=== PATIENT | male | born 1960 | race Caucasian/White ===

== ENCOUNTER 2017-11-02 10:41 | Inpatient (IN) | payer OTHER ==
[~2017-11-02] VITALS: Ht 190.5 cm; Wt 163.3 kg
[2017-11-02] MEDS ORDERED: PANTOPRAZOLE 40 MG 10ML VIAL IV STA (10:44)
[2017-11-02] MEDS ORDERED: SODIUM CHLORIDE 0.9% 1000ML 1,000 ML IV STA (10:44)
[2017-11-02] MEDS ORDERED: IPRATROPIUM BROMIDE 0.02% 2.5 ML NEB NEB ONE (10:45)
[2017-11-02] MEDS ORDERED: FUROSEMIDE INJ 10 MG/ML 2 ML VIAL IV ONE (10:45)
[2017-11-02] MEDS ORDERED: LEVALBUTEROL HCL SOLN NEBU 1.25 MG/3 ML NEB INH ONE (10:45)
[2017-11-02] MEDS ORDERED: PANTOPRAZOLE 40 MG 10ML VIAL IV SCH (11:00)
[2017-11-02 11:04] LABS: BASOPHILS % 0.4 % (0.0-1.0); EOSINOPHILS # (AUTO) 0.1 (0.0-0.4); EOSINOPHILS % 1.1 % (0.0-6.0); HEMATOCRIT 42.7 % (38.2-49.6); HEMOGLOBIN 13.4 g/dL (14.0-18.0); LYMPHOCYTES # (AUTO) 2.6 (1.0-3.2); LYMPHOCYTES % 34.5 % (18.0-39.1); MEAN CORPUSCULAR HEMOGLOBIN 26.6 pg (28-32); MEAN CORPUSCULAR HGB CONC 31.4 g/dL (31-35); MEAN CORPUSCULAR VOLUME 84.9 fL (81-99); MONOCYTES # (AUTO) 0.5 (0.2-0.8); MONOCYTES % 7.1 % (4.4-11.3); NEUTROPHILS # (AUTO) 4.2 (2.1-6.9); NEUTROPHILS % 56.4 % (38.7-80.0); PLATELET COUNT 266 x10e3/uL (140-360); RED BLOOD COUNT 5.03 x10e6/uL (4.3-5.7); RED CELL DISTRIBUTION WIDTH 14.5 % (11.7-14.4)
[2017-11-02 11:14] LABS: INR 1.22; PROTHROMBIN TIME 14.5 seconds (11.9-14.5)
[2017-11-02 11:15] LABS: PARTIAL THROMBOPLASTIN TIME 25.6 seconds (23.8-35.5)
--- NOTE | 2017-11-02 11:17 | Diagnostic Imaging Report ---
EXAMINATION: CHEST SINGLE (PORTABLE) INDICATION: Trouble breathing COMPARISON: None FINDINGS: AP view TUBES and LINES: None. LUNGS: Lungs are well inflated. There are bibasilar atelectasis. There is mild prominence of the central pulmonary vasculature, consistent with pulmonary venous congestion. PLEURA: No pleural effusion or pneumothorax. HEART AND MEDIASTINUM: Cardiac size is mildly enlarged. BONES AND SOFT TISSUES: No acute osseous lesion. Soft tissues are unremarkable. UPPER ABDOMEN: No free air under the diaphragm. IMPRESSION: Central pulmonary venous congestion. Signed by: Dr. Asa Muñoz M.D. on 11/02/2017 11:14 AM
[2017-11-02 11:19] LABS: KETONES,URINE NEGATIVE (NEGATIVE); LEUKOCYTE ESTERASE ,URINE NEGATIVE (NEGATIVE); NITRITE,URINE NEGATIVE (NEGATIVE); URINE UROBILINOGEN 0.2 mg/dL (0.2 - 1)
[2017-11-02 11:20] LABS: BILIRUBIN,URINE 1+ (NEGATIVE); COLOR,URINE YELLOW (YELLOW); PROTEIN,URINE DIPSTICK 2+ (NEGATIVE)
[2017-11-02 11:21] LABS: CLARITY,URINE HAZY (CLEAR)
[2017-11-02 11:24] LABS: ALBUMIN 3.2 g/dL (3.5-5.0); ALBUMIN/GLOBULIN RATIO 0.8 (0.8-2.0); ANION GAP 15.5 mmol/L (8-16); CALCIUM 9.4 mg/dL (8.4-10.2); CREATININE, SERUM 2.07 mg/dL (0.72-1.25); MAGNESIUM 1.4 MG/DL (1.3-2.1); POTASSIUM 4.5 mmol/L (3.5-5.1)
[2017-11-02 11:25] LABS: BACTERIA,URINE FEW /HPF; EPITHELIAL CELLS,URINE FEW /LPF; RBC,URINE 0-5 /HPF (0-5); WBC,URINE (MAN) 0-5 /HPF (0-5)
[2017-11-02] MEDS ORDERED: basaglar SC (11:35)
[2017-11-02] MEDS ORDERED: PIOGLITAZONE HC45 MG PO (11:35)
[2017-11-02] MEDS ORDERED: ASPIR 8181 MG PO (11:35)
[2017-11-02] MEDS ORDERED: GABAPENTIN300 MG PO (11:35)
[2017-11-02] MEDS ORDERED: METFORMIN HCL500 MG PO (11:35)
[2017-11-02] MEDS ORDERED: SIMVASTATIN40 MG PO (11:35)
[2017-11-02] MEDS ORDERED: OMEPRAZOLE40 MG PO (11:35)
[2017-11-02] MEDS ORDERED: LISINOPRIL10 MG PO (11:35)
[2017-11-02] MEDS ORDERED: HYDROCHLOROTHIA25 MG PO (11:35)
[2017-11-02] MEDS ORDERED: DIATRIZOATE MEGL/DIATRIZOA SOD 30 ML BTL PO ONE (11:37)
[2017-11-02 11:43] LABS: CREATINE KINASE MB 6.9 ng/mL (0-5.0); THYROID STIMULATING HORMONE 2.37 uIU/mL (0.350-4.940)
[2017-11-02] MEDS ORDERED: METOPROLOL TARTRATE 50 MG TAB PO ONE (11:45)
[2017-11-02] MEDS ORDERED: METOPROLOL TARTRATE INJ 1 MG/ML VIAL IV SCH ×5 (11:45→15:45)
[2017-11-02] MEDS ORDERED: DIGOXIN INJ 0.25 MG/ML 2 ML AMP IV SCH (12:00)
[2017-11-02] MEDS ORDERED: FUROSEMIDE INJ 10 MG/ML 2 ML VIAL IV SCH (13:00)
[2017-11-02] MEDS ORDERED: METOPROLOL TARTRATE INJ 1 MG/ML VIAL IV ONE ×2 (13:00→14:15)
[2017-11-02] MEDS ORDERED: DEXTROSE 50% SYRINGE 50 ML IV PRN ×2 (13:30→17:30)
[2017-11-02] MEDS ORDERED: ASPIRIN 81 MG CHEW TAB PO SCH (13:30)
[2017-11-02] MEDS ORDERED: ENOXAPARIN SODIUM INJ 100 MG/ML SYR SC SCH (13:45)
[2017-11-02] MEDS ORDERED: LEVALBUTEROL HCL SOLN NEBU 1.25 MG/3 ML NEB INH PRN (14:00)
[2017-11-02] MEDS ORDERED: IPRATROPIUM BROMIDE 0.02% 2.5 ML NEB NEB PRN (14:00)
--- NOTE | 2017-11-02 14:14 | Diagnostic Imaging Report ---
EXAM: CT Chest, Abdomen and Pelvis WITHOUT contrast INDICATION: Trouble breathing. Abdominal pain. \S\PE PROTOCOL\S\Y COMPARISON: None. TECHNIQUE: Chest, abdomen and pelvis were scanned utilizing a multidetector helical scanner from the lung apex to the pubic symphysis without administration of IV contrast. Absence of intravenous contrast decreases sensitivity for detection of focal lesions and vascular pathology. Coronal and sagittal reformations were obtained. Routine protocol was performed. IV CONTRAST: None ORAL CONTRAST: Gastrografin COMPLICATIONS: None RADIATION DOSE: Total DLP: 1274.06 mGy*cm Estimated effective dose: (DLP x 0.015 x size factor) mSv CTDIvol has been reviewed. It is below the limits set by the Radiation Protocol Committee (RPC). FINDINGS: LINES and TUBES: None. LUNGS AND AIRWAYS: Mild interlobular septal thickening especially in the lung bases. Mild groundglass opacities in both lower lobes especially the left lower lobe. Mild bronchial wall thickening. Calcified granuloma in the left lower lobe. A few scattered calcified granulomas in the right lung base. Right lower lobe: 8 mm nodule (series 4 image 85) PLEURA: Small right pleural effusion. HEART AND MEDIASTINUM: The thyroid gland is normal. No mediastinal, hilar or axillary lymphadenopathy. The heart is normal in size. There is no pericardial effusion. There are mild atherosclerotic calcifications in the aorta and coronary arteries. HEPATOBILIARY: Liver is enlarged measuring 24 cm in craniocaudal dimension. However, the left hepatic lobe is small, consistent with Agnieszka's lobe. Diffuse hepatic steatosis. No focal hepatic lesions. No biliary ductal dilation. GALLBLADDER: No radio-opaque stones or sludge. No wall thickening. Subtle fat stranding around the gallbladder. SPLEEN: Mild splenomegaly measuring 13.5 cm in AP dimension. PANCREAS: No focal masses or ductal dilatation. ADRENALS: No adrenal nodules KIDNEYS/URETERS: Right kidney is absent. Perinephric fat stranding around the left kidney. No hydronephrosis. No cystic or solid mass lesions. No stones. GI TRACT: No abnormal distention, wall thickening, or evidence of bowel obstruction. Appendix is normal. PELVIC ORGANS/BLADDER: Bladder unremarkable. Prostate is unremarkable. Left seminal vesicle is mildly prominent. Right seminal vesicle is not visualized. LYMPH NODES: No lymphadenopathy. VESSELS: There is mild atherosclerotic disease in the aorta and major arterial branches. PERITONEUM / RETROPERITONEUM: No free air or fluid. BONES: There are degenerative changes in the lumbar spine. Mild degenerative changes at L4-5 with posterior disc osteophyte SOFT TISSUES: Unremarkable. IMPRESSION: 1. Mild patchy ground glass opacities and interlobular septal thickening consistent with mild edema. 2. Focal pneumonia in the left lower lobe. 3. 8 mm nonspecific right lower lobe nodule. Recommend follow-up chest CT in 3 months. 4. Subtle nonspecific fat stranding around the gallbladder without radiopaque stones identified. 5. Diffuse hepatic steatosis with mild hepatomegaly/Agnieszka's lobe. Signed by: Dr. Asa Muñoz M.D. on 11/02/2017 2:11 PM
[2017-11-02] MEDS ORDERED: AMIODARONE HCL 150 MG/100 ML BAG IV ONE (15:30)
[2017-11-02] MEDS ORDERED: MAGNESIUM SULFATE 2GM/50ML 50 ML IV SCH (15:30)
[2017-11-02] MEDS: AMIODARONE HCL 200 MG TAB PO SCH (16:24)
[2017-11-02] MEDS: METOPROLOL TARTRATE 25 MG TAB PO SCH (16:25)
[2017-11-02] MEDS: INSULIN REGULAR, HUMAN 100 UNIT/1 ML 3ML VIAL SQ SCH ×2 (16:25→22:15)
--- OUTSIDE RECORDS SUMMARY | 2017-11-02 16:38 | XMS REPORT ---
Author Author [facility] Address Unknown Phone Unavailable Care Team Providers Care [employer] Name Role Phone RACIEL CRANE Unavailable Unavailable Problems This patient has no known problems. Allergies, Adverse Reactions, Alerts This patient has no known allergies or adverse reactions. Medications This patient has no known medications. Results Test Description Test Time Test Comments Text Results Atomic Results Result Comments CHEST SINGLE (PORTABLE) [place] [address] Patient Name: PILLO BERGERON MR #: [id number] : 1960 Age/Sex: 57/M Req #: [id number] Adm Physician: Ordered by: RACIEL CRANE MD, MD Report #: [id number] Location: ER Room/Bed: Procedure: [id number] DX/CHEST SINGLE (PORTABLE) Exam Date: 11/02/17 Exam Time: 1100 REPORT STATUS: Signed EXAMINATION : CHEST SINGLE (PORTABLE) INDICATION: Trouble breathing COMPARISON: None FINDINGS: AP view TUBES and LINES: None. LUNGS: Lungs are well inflated. There are bibasilar atelectasis. There is mild prominence of the central pulmonary vasculature, consistent with pulmonary venous congestion. PLEURA: No pleural effusion or pneumothorax. HEART AND MEDIASTINUM: Cardiac size is mildly enlarged. BONES AND SOFT TISSUES: No acute osseous lesion. Soft tissues are unremarkable. UPPER ABDOMEN: No free air under the diaphragm. IMPRESSION: Central pulmonary venous congestion. Signed by: Dr. Reggie Muñoz M.D. on 11/02/2017 11:14 AM Dictated By: REGGIE MUÑOZ MD 111 Transcribed By: JAMI on 11/02/17 1114 COPY TO: RACIEL CRANE CT CHEST WO [place] [address] Patient Name: PILLO BERGERON MR #: [id number] : 1960 Age/Sex: 57/M Req # : [id number] Adm Physician: Ordered by: RACIEL CRANE MD, MD Report #: [id number] Location: ER Room/Bed: Procedure: [id number] CT/CT CHEST WO Exam Date: 11/02/17 Exam Time: 1310 REPORT STATUS: Signed EXAM: CT Chest, Abdomen and Pelvis WITHOUT contrast INDICATION: Trouble breathing. Abdominal pain. S PE PROTOCOL S Y COMPARISON: None. TECHNIQUE: Chest, abdomen and pelvis were scanned utilizing a multidetector helical scanner from the lung apex to the pubic symphysis without administration of IV contrast. Absence of intravenous contrast decreases sensitivity for detection of focal lesions and vascular pathology. Coronal and sagittal reformations were obtained. Routine protocol was performed. IV CONTRAST: None ORAL CONTRAST: Gastrografin COMPLICATIONS: None RADIATION DOSE: Total DLP: 1274.06 mGy*cm Estimated effective dose: (DLP x 0.015 x size factor) mSv CTDIvol has been reviewed. It is below the limits set by the Radiation Protocol Committee (RPC). FINDINGS: LINES and TUBES: None. LUNGS AND AIRWAYS: Mild interlobular septal thickening especially in the lung bases. Mild groundglass opacities in both lower lobes especially the left lower lobe. Mild bronchial wall thickening. Calcified granuloma in the left lower lobe. A few scattered calcified granulomas in the right lung base. Right lower lobe: 8 mm nodule (series 4 image 85) PLEURA: Small right pleural effusion. HEART AND MEDIASTINUM: The thyroid gland is normal. No mediastinal, hilar or axillary lymphadenopathy. The heart is normal in size. There is no pericardial effusion. There are mild atherosclerotic calcifications in the aorta and coronary arteries. HEPATOBILIARY: Liver is enlarged measuring 24 cm in craniocaudal dimension. However, the left hepatic lobe is small, consistent with Agnieszka's lobe. Diffuse hepatic steatosis. No focal hepatic lesions. No biliary ductal dilation. GALLBLADDER: No radio-opaque stones or sludge. No wall thickening. Subtle fat stranding around the gallbladder. SPLEEN: Mild splenomegaly measuring 13.5 cm in AP dimension. PANCREAS: No focal masses or ductal dilatation. ADRENALS: No adrenal nodules KIDNEYS/URETERS: Right kidney is absent. Perinephric fat stranding around the left kidney. No hydronephrosis. No cystic or solid mass lesions. No stones. GI TRACT: No abnormal distention, wall thickening, or evidence of bowel obstruction. Appendix is normal. PELVIC ORGANS/BLADDER: Bladder unremarkable. Prostate is unremarkable. Left seminal vesicle is mildly prominent. Right seminal vesicle is not visualized. LYMPH NODES: No lymphadenopathy. VESSELS: There is mild atherosclerotic disease in the aorta and major arterial branches. PERITONEUM / RETROPERITONEUM: No free air or fluid. BONES: There are degenerative changes in the lumbar spine. Mild degenerative changes at L4-5 with posterior disc osteophyte SOFT TISSUES: Unremarkable. IMPRESSION: 1. Mild patchy ground glass opacities and interlobular septal thickening consistent with mild edema. 2. Focal pneumonia in the left lower lobe. 3. 8 mm nonspecific right lower lobe nodule. Recommend follow-up chest CT in 3 months. 4. Subtle nonspecific fat stranding around the gallbladder without radiopaque stones identified. 5. Diffuse hepatic steatosis with mild hepatomegaly/Agnieszka's lobe. Signed by: Dr. Reggie Muñoz M.D. on 11/02/2017 2:11 PM Dictated By: REGGIE MUÑOZ MD 1411 Transcribed By: JAMI on 11/02/17 1411 COPY TO: RACIEL CRANE
[2017-11-02] MEDS ORDERED: AMIODARONE HCL 900 MG in DEXTROSE 5% 500ML 500 ML IV SCH (17:00)
[2017-11-02] MEDS ORDERED: ENOXAPARIN SOD INJ 40 MG/0.4 ML SYR SC SCH (17:00)
[2017-11-02] MEDS ORDERED: FUROSEMIDE INJ 10 MG/ML 4 ML VIAL IV SCH (17:00)
[2017-11-02] MEDS ORDERED: ZOLPIDEM TARTRATE 5 MG TAB PO PRN (17:30)
[2017-11-02] MEDS ORDERED: MAGNESIUM SULFATE 2GM/50ML 50 ML IV ONE (17:30)
[2017-11-02] MEDS ORDERED: HYDRALAZINE HCL 20 MG/ML VIAL IV PRN (17:30)
[2017-11-02] MEDS ORDERED: HYDROCODONE/APAP 5MG-325MG TAB PO PRN (17:45)
[2017-11-02] MEDS ORDERED: MORPHINE SULFATE 2 MG/ML SYR IV PRN (17:45)
[2017-11-02] MEDS: DIGOXIN INJ 0.25 MG/ML 2 ML AMP IV SCH (17:45)
[2017-11-02] MEDS ORDERED: ONDANSETRON HCL INJ 2 MG/ML VIAL IV PRN (17:45)
[2017-11-02] MEDS ORDERED: ACETAMINOPHEN 325 MG TAB PO PRN (17:45)
[2017-11-02] MEDS ORDERED: AMIODARONE HCL 150 MG/100 ML BAG IV SCH (18:00)
[2017-11-02] MEDS: CEFTRIAXONE SOD 1 GM VIAL IV SCH (18:06)
[2017-11-02] MEDS: FUROSEMIDE INJ 100 MG in SODIUM CHLORIDE 0.9% 100 ML 90 ML IV SCH (20:10)
[2017-11-02] MEDS: ENOXAPARIN SODIUM INJ 100 MG/ML SYR SC SCH (23:12)
[2017-11-03] MEDS: DIGOXIN INJ 0.25 MG/ML 2 ML AMP IV SCH
--- NOTE | 2017-11-03 01:20 | Diagnostic Imaging Report ---
EXAM: US RENAL RETROPERITONEAL COMP INDICATION: \S\kaylee \[id number] \S\[id number] COMPARISON: None TECHNIQUE: Transverse and longitudinal images of the kidneys and bladder were obtained. FINDINGS: Examination is degraded by body habitus. Right Kidney: Not visualized Left Kidney: Length: 13.3 cm Appearance: Normal echogenicity. Collecting system: No hydronephrosis Stones: None Cyst/Mass: None Bladder: Mostly decompressed. Other: Hepatic steatosis. IMPRESSION: Solitary left kidney without hydronephrosis. Signed by: Dr Naina Cheatham MD on 11/03/2017 1:17 AM
[2017-11-03 01:21] LABS: BASOPHILS % 0.3 % (0.0-1.0); EOSINOPHILS # (AUTO) 0.1 (0.0-0.4); EOSINOPHILS % 0.8 % (0.0-6.0); HEMOGLOBIN 12.8 g/dL (14.0-18.0); LYMPHOCYTES # (AUTO) 3.4 (1.0-3.2); LYMPHOCYTES % 39.4 % (18.0-39.1); MEAN CORPUSCULAR HEMOGLOBIN 26.7 pg (28-32); MEAN CORPUSCULAR HGB CONC 31.2 g/dL (31-35); MEAN CORPUSCULAR VOLUME 85.4 fL (81-99); MONOCYTES # (AUTO) 0.7 (0.2-0.8); MONOCYTES % 8.2 % (4.4-11.3); NEUTROPHILS # (AUTO) 4.4 (2.1-6.9); NEUTROPHILS % 50.8 % (38.7-80.0); PLATELET COUNT 277 x10e3/uL (140-360); RED CELL DISTRIBUTION WIDTH 14.5 % (11.7-14.4)
[2017-11-03 01:37] LABS: ALBUMIN 3.3 g/dL (3.5-5.0); ALBUMIN/GLOBULIN RATIO 0.8 (0.8-2.0); ANION GAP 17.2 mmol/L (8-16); CALCIUM 9.2 mg/dL (8.4-10.2); CREATININE, SERUM 2.2 mg/dL (0.72-1.25); POTASSIUM 4.2 mmol/L (3.5-5.1)
[2017-11-03 01:38] LABS: CHOL/HDL RATIO 4.8 (3.9-4.7)
[2017-11-03 01:59] LABS: CREATINE KINASE MB 6.9 ng/mL (0-5.0)
[2017-11-03 02:01] LABS: THYROID STIMULATING HORMONE 3.181 uIU/mL (0.350-4.940)
--- NOTE | 2017-11-03 06:05 | Diagnostic Imaging Report ---
CHEST SINGLE (PORTABLE), 11/03/2017 7:00 AM Technique: CHEST SINGLE (PORTABLE) Comparison: CT 11/02/2017. Clinical history: CHF Findings: Left costophrenic angle is excluded. See impression Impression: Limited by body habitus and portable technique 1. Mildly enlarged cardiomediastinal silhouette. 2. Central vascular congestion. Small effusions with bibasilar atelectasis or consolidation. Signed by: Dr Naina Cheatham MD on 11/03/2017 6:01 AM
[2017-11-03] MEDS: INSULIN REGULAR, HUMAN 100 UNIT/1 ML 3ML VIAL SQ SCH ×4 (08:37→20:56)
[2017-11-03] MEDS ORDERED: LISINOPRIL 10 MG TAB PO SCH (09:00)
[2017-11-03] MEDS: METOPROLOL TARTRATE 25 MG TAB PO SCH ×2 (09:51→18:10)
[2017-11-03] MEDS: ENOXAPARIN SODIUM INJ 100 MG/ML SYR SC SCH ×2 (09:52→20:56)
[2017-11-03] MEDS: AMIODARONE HCL 200 MG TAB PO SCH ×2 (09:52→18:10)
[2017-11-03] MEDS: DIGOXIN 0.25 MG TAB PO SCH (09:52)
--- NOTE | 2017-11-03 15:07 | Cardiology Report ---
DATE OF STUDY: November 02, [address] Ifeanyi Crane. DOPPLER SCAN OF LOWER EXTREMITY VEINS The lower extremity veins were interrogated using the duplex scanning method. The right and left distal femoral veins were poorly visualized, as was the proximal right posterior tibial vein. Elsewhere the veins were compressible without definite deep venous thrombosis. CONCLUSIONS: 1. Suboptimal study with both distal femoral veins poorly visualized and the proximal right posterior tibial vein poorly visualized. Deep venous thrombosis in these areas cannot be completely excluded. 1. Elsewhere in the lower extremity veins bilaterally there were no definite deep venous thromboses. Job#: [id number] EV cc:IFEANYI CRANE MD
--- NOTE | 2017-11-03 15:12 | Cardiology Report ---
DATE OF STUDY: November 02, 2017 ECHOCARDIOGRAM ATTENDING PHYSICIAN: Dr. Ifeanyi Crane. M-MODE: Dilated left atrium. Left ventricular hypertrophy. Poorly visualized left ventricular contractility. Poor image quality. Poorly visualized aortic and mitral valves. No pericardial effusion. SECTOR SCAN: Dilated left and right atria. Right ventricular hypertrophy. Poorly visualized left ventricular contractility appears to be diminished. Mitral, aortic and tricuspid valves are grossly normal. There is no pericardial effusion. CARDIAC DOPPLER STUDY WITH COLOR: Trace mitral regurgitation. CONCLUSIONS: 1. Suboptimal study with poor image quality with poorly visualized left ventricular contractility. Left ventricular contractility is suspected to be diminished. Ejection fraction is estimated at 35%. If clinically indicated, consider contrast echocardiography to better delineate left ventricular function. 1. Dilated left and right atria. 2. Right ventricular hypertrophy with borderline left ventricular hypertrophy. 3. Tachycardia noted. Job#: [id number] EV cc:IFEANYI CRANE MD
[2017-11-03] MEDS ORDERED: POTASSIUM CHLORIDE 20 MEQ TAB CR PO SCH (16:44)
[2017-11-03] MEDS: CEFTRIAXONE SOD 1 GM VIAL IV SCH (18:11)
[2017-11-03] MEDS: INSULIN DETEMIR 100 UNIT/ML PEN SQ SCH (20:56)
[2017-11-03] MEDS: FUROSEMIDE INJ 100 MG in SODIUM CHLORIDE 0.9% 100 ML 90 ML IV SCH ×2 (20:56→23:41)
[2017-11-03 21:00] VITALS: BP 136/73
[2017-11-03] MEDS ORDERED: ATORVASTATIN 20 MG TAB PO SCH (21:00)
[2017-11-04] VITALS (8 sets, daily range): BP systolic 111–139; BP diastolic 58–73
[2017-11-04 07:15] LABS: BASOPHILS % 0.5 % (0.0-1.0); EOSINOPHILS # (AUTO) 0.2 (0.0-0.4); EOSINOPHILS % 2.6 % (0.0-6.0); HEMATOCRIT 40.9 % (38.2-49.6); HEMOGLOBIN 13.2 g/dL (14.0-18.0); LYMPHOCYTES # (AUTO) 2.1 (1.0-3.2); LYMPHOCYTES % 31.4 % (18.0-39.1); MEAN CORPUSCULAR HGB CONC 32.3 g/dL (31-35); MEAN CORPUSCULAR VOLUME 83.6 fL (81-99); MONOCYTES # (AUTO) 0.6 (0.2-0.8); MONOCYTES % 8.7 % (4.4-11.3); NEUTROPHILS # (AUTO) 3.8 (2.1-6.9); NEUTROPHILS % 56.3 % (38.7-80.0); PLATELET COUNT 245 x10e3/uL (140-360); RED BLOOD COUNT 4.89 x10e6/uL (4.3-5.7); RED CELL DISTRIBUTION WIDTH 14.2 % (11.7-14.4)
[2017-11-04 07:35] LABS: ANION GAP 14.1 mmol/L (8-16); CALCIUM 10.1 mg/dL (8.4-10.2); CREATININE, SERUM 1.89 mg/dL (0.72-1.25); POTASSIUM 4.1 mmol/L (3.5-5.1)
[2017-11-04] MEDS: FUROSEMIDE INJ 100 MG in SODIUM CHLORIDE 0.9% 100 ML 90 ML IV SCH ×2 (08:20→18:43)
[2017-11-04] MEDS: AMIODARONE HCL 200 MG TAB PO SCH ×2 (08:20→17:08)
[2017-11-04] MEDS: METOPROLOL TARTRATE 25 MG TAB PO SCH ×2 (08:21→17:08)
[2017-11-04] MEDS: INSULIN REGULAR, HUMAN 100 UNIT/1 ML 3ML VIAL SQ SCH ×4 (08:21→21:46)
[2017-11-04] MEDS: ENOXAPARIN SODIUM INJ 100 MG/ML SYR SC SCH ×2 (08:21→21:45)
[2017-11-04] MEDS: INSULIN DETEMIR 100 UNIT/ML PEN SQ SCH (08:21)
[2017-11-04] MEDS: DIGOXIN 0.25 MG TAB PO SCH (08:21)
[2017-11-04] MEDS ORDERED: ASPIRIN 325 MG TAB PO SCH (09:00)
--- NOTE | 2017-11-04 11:06 | History and Physical ---
CHIEF COMPLAINT: Shortness of breath, dyspnea on exertion, orthopnea. HISTORY OF PRESENT ILLNESS: This is a 57-year-old male, morbidly obese, history of diabetes and hypertension. Seems to be very noncompliant following up with his PCP as his reports that he sees his PCP sparingly. Comes into the ED with complaints of worsening anasarca and edema ongoing for the last several months now. Patient reports that he is very compliant with his diabetic regimen at home. He reports his blood pressure is well controlled at home as well. He reports eating a low-sodium diet. He denies any chest pain, but the states that he had chest pain about a week ago. He denies any fever, cough or congestion. Patient presents to the ED due to worsening shortness of breath and orthopnea and came to be further evaluated. Chest x-ray was consistent with pulmonary edema. He also had significant anasarca throughout. Patient had significant lower extremity edema. Reports having a history of a right lower extremity DVT. Patient seen and evaluated at bedside on the medical floor in the ER, currently doing well with no other issues. He denies being on oxygen at home. REVIEW OF SYSTEMS PERTINENT POSITIVE: Orthopnea, shortness of breath on exertion, anasarca, edema. PERTINENT NEGATIVE: He denies any chest pain, palpitations, nausea, vomiting, diarrhea, dysuria, hematuria, frequency, urgency, lightheadedness, dizziness, abdominal pain, headache, or any other complaints. REST OF 14-POINT REVIEW OF SYSTEMS: Have been reviewed with the patient and are negative. ALLERGIES: THERE ARE NO KNOWN DRUG ALLERGIES. HOME MEDICATIONS: Aspirin 81 mg daily, gabapentin 300 mg nightly, hydrochlorothiazide 25 mg daily, lisinopril 40 mg daily, metformin 500 mg b.i.d., omeprazole 40 mg daily, pioglitazone 30 mg daily, simvastatin 40 mg daily. PAST MEDICAL HISTORY: Diabetes, morbidly obese, obstructive sleep apnea, hypertension, dyslipidemia, history of DVT. SURGICAL HISTORY: Reports none. FAMILY HISTORY: Hypertension, diabetes. SOCIAL HISTORY: Denies drugs, alcohol or any smoking history. He is . VITAL SIGNS: Temperature is 98.4, pulse is 100, respiratory rate is 22, blood pressure is 117/87, pulse ox is 93% on nasal cannula. LAB FINDINGS: Show white count of 7.4, hemoglobin 13.4, hematocrit is 43, platelets of 266. Coagulations are normal. Chemistry: Sodium 136, potassium 4.5, chloride 103, bicarb 22, anion gap of 15, BUN is 43, creatinine is 2.07, unknown baseline. Glucose is 220. Calcium 9.4, magnesium 1.4. LFTs were normal. Ammonia is 41. Troponin is negative. BNP 210. Albumin 3.2. TSH 2.3. Lipase 35, amylase 57. Urinalysis is negative. MICROBIOLOGY: Blood and urine cultures pending. IMAGING STUDIES: Chest x-ray shows some central pulmonary venous congestion. A CT chest consistent with a mild patchy ground-glass opacity with septal thickening consistent with pulmonary edema. There is focal pneumonia in the left lower lobe. There is some diffuse hepatic steatosis. He has an 8 mm nonspecific right lower lobe lung nodule, will need repeat CT in 3 months. Discussed with the patient, who verbalized understanding to follow up accordingly with his PCP. PHYSICAL EXAMINATION GENERAL: Not in acute distress. He is morbidly obese with a nasal cannula. HEENT: Head: Normocephalic, atraumatic. Eyes: Pupils equally round and reactive to light bilaterally. Extraocular movements intact bilaterally. Neck was supple with good range of motion. Throat: No evidence of any erythema or exudates in the posterior pharynx. He has poor dentition. PULMONARY: He has positive rales throughout. No expiratory wheezing. Fine crackles appreciated. No rhonchi. CARDIOVASCULAR: Positive S1/S2. No murmurs, rubs or gallops appreciated. He has irregularly irregular heart rhythm. ABDOMEN: Distended and nontender to palpation. Bowel sounds present. MUSCULOSKELETAL: Strength is 5/5 throughout. No evidence of any musculoskeletal deficit on examination. No weakness appreciated. NEUROLOGICAL: Cranial nerves 2-12 grossly intact. No evidence of any neurological deficit on exam. SKIN: Intact. Warm to touch. Good capillary refill. PSYCHIATRIC: Normal affect and mood. EXTREMITIES: He has 3+ pedal edema with anasarca throughout. ASSESSMENT AND PLAN 1. Anasarca likely secondary to acute exacerbation of congestive heart failure, unknown etiology: Prelim echo shows EF of 25% to 30%, likely has systolic dysfunction. Trend troponins, cardioprotective meds, Cardiology consulted and already evaluated, Lasix drip 10 mg per hour. 2. Atrial fibrillation seen on electrocardiogram: Has started on rate-control medications, also started on amiodarone drip. 3. Type 2 diabetes: Get a hemoglobin A1c, insulin sliding scale, Accu-Cheks. 4. Hypertension: Stable. Continue same home medications, p.r.n. hydralazine. 5. Morbidly obese: Discussed with patient about exercise and diet plan. 6. Obstructive sleep apnea likely: Continue with nasal cannula for now, needs outpatient sleep study. 7. Acute kidney injury versus chronic kidney disease: There are no records of any of his creatinine here in this hospital stay or even in any hospital stay and has not been hospitalized recently of note according to the patient. Will repeat labs in the morning, monitor closely. 8. Community-acquired pneumonia: Imaging studies were consistent with pneumonia. Start on IV antibiotics. 9. Prophylaxis will be Lovenox. 10. Fluid, electrolytes, nutrients: Heart-healthy diet, no IV fluids. 11. Disposition: Inpatient. Cardiology consulted. I spent more than 45 minutes of critical care time on this patient's case reviewing the chart and discussing overall plan of care with the family as well as consultants. Job#: [id number] EV
[2017-11-04 16:19] LABS: MAGNESIUM 1.6 MG/DL (1.3-2.1); POTASSIUM 4.2 mmol/L (3.5-5.1)
[2017-11-04] MEDS: CEFTRIAXONE SOD 1 GM VIAL IV SCH (17:08)
[2017-11-04] MEDS: ATORVASTATIN 40 MG TAB PO SCH (21:46)
[2017-11-05] VITALS (7 sets, daily range): BP systolic 116–145; BP diastolic 58–71
[2017-11-05] MEDS: FUROSEMIDE INJ 100 MG in SODIUM CHLORIDE 0.9% 100 ML 90 ML IV SCH (04:49)
[2017-11-05 07:09] LABS: BASOPHILS % 0.3 % (0.0-1.0); EOSINOPHILS # (AUTO) 0.2 (0.0-0.4); EOSINOPHILS % 2.9 % (0.0-6.0); HEMATOCRIT 43.3 % (38.2-49.6); HEMOGLOBIN 13.7 g/dL (14.0-18.0); LYMPHOCYTES # (AUTO) 1.9 (1.0-3.2); LYMPHOCYTES % 29.3 % (18.0-39.1); MEAN CORPUSCULAR HEMOGLOBIN 26.8 pg (28-32); MEAN CORPUSCULAR HGB CONC 31.6 g/dL (31-35); MEAN CORPUSCULAR VOLUME 84.7 fL (81-99); MONOCYTES # (AUTO) 0.8 (0.2-0.8); MONOCYTES % 11.9 % (4.4-11.3); NEUTROPHILS # (AUTO) 3.5 (2.1-6.9); NEUTROPHILS % 55.1 % (38.7-80.0); PLATELET COUNT 240 x10e3/uL (140-360); RED BLOOD COUNT 5.11 x10e6/uL (4.3-5.7); RED CELL DISTRIBUTION WIDTH 13.9 % (11.7-14.4)
[2017-11-05] MEDS: INSULIN REGULAR, HUMAN 100 UNIT/1 ML 3ML VIAL SQ SCH ×4 (07:30→23:30)
[2017-11-05 07:47] LABS: ANION GAP 15.6 mmol/L (8-16); CALCIUM 9.7 mg/dL (8.4-10.2); CREATININE, SERUM 2.09 mg/dL (0.72-1.25); POTASSIUM 4.6 mmol/L (3.5-5.1)
[2017-11-05] MEDS ORDERED: SODIUM CHLORIDE 0.9% 1000ML 1,000 ML IV SCH ×2 (08:15→14:30)
[2017-11-05] MEDS: INSULIN DETEMIR 100 UNIT/ML PEN SQ SCH (08:24)
[2017-11-05] MEDS: AMIODARONE HCL 200 MG TAB PO SCH ×2 (08:44→17:35)
[2017-11-05] MEDS: ASPIRIN 81 MG CHEW TAB PO SCH (08:44)
[2017-11-05] MEDS: ENOXAPARIN SODIUM INJ 100 MG/ML SYR SC SCH ×2 (08:44→23:30)
[2017-11-05] MEDS: METOPROLOL TARTRATE 25 MG TAB PO SCH ×2 (08:46→17:36)
[2017-11-05] MEDS: DIGOXIN 0.25 MG TAB PO SCH (09:00)
[2017-11-05] MEDS ORDERED: ACETYLCYSTEINE 20% INHAL SOLN 30 ML VIAL PO ONE (09:00)
[2017-11-05] MEDS ORDERED: HEPARIN SOD/SOD CHLORIDE 2,000 ML ONE (11:15)
[2017-11-05] MEDS ORDERED: FENTANYL CITRATE/PF 100MCG/2 ML INJ ONE (11:15)
[2017-11-05] MEDS ORDERED: IOPAMIDOL 370 MG/ML 200 ML INFUS..BTL INJ ONE (11:15)
[2017-11-05] MEDS ORDERED: MIDAZOLAM HCL 2 MG/2 ML VIAL ONE (11:15)
[2017-11-05] MEDS ORDERED: LIDOCAINE HCL 2% LOCAL 20 ML VIAL ONE (11:15)
--- NOTE | 2017-11-05 14:43 | Operative Report ---
DATE OF PROCEDURE: PROCEDURES PERFORMED 1. Left heart catheterization. 2. Selective coronary angiogram. INDICATIONS: Cardiomyopathy. DESCRIPTION OF PROCEDURE: After informed consent, patient was brought to the cardiac catheterization laboratory and placed on the table. Both groins were painted and draped in a sterile fashion. Lidocaine injected in the right groin for local anesthesia. Right femoral artery was accessed by Seldinger technique, and a 5-Congolese sheath was placed the right femoral artery. Left main artery was cannulated using a JL4 5-Congolese catheter. Coronary angiogram was performed and images obtained in multiple views. Right coronary artery was cannulated using a 3DRC 5-Congolese catheter. Coronary angiogram was performed and images obtained in multiple views. No LV-gram was performed as the patient had renal failure. Patient tolerated the procedure without complications. REPORT LEFT MAIN: Non-caliber and appears to be free of disease. LEFT ANTERIOR DESCENDING: Normal caliber and no significant stenosis noted. 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 Following the dilatation, the artery tapers off into a very narrow caliber vessel. It has a 90% lesion in its midportion followed by another 90% lesion in its mid to distal segment. The obtuse marginal branch has about a 40% proximal lesion. RIGHT CORONARY ARTERY: A large caliber dominant vessel and has luminal irregularities. PLAN: Medical management. Possible Life Vest and ICD for LV dysfunction. Job#: [id number] NADER
[2017-11-05] MEDS: CEFTRIAXONE SOD 1 GM VIAL IV SCH (17:35)
[2017-11-05] MEDS: ATORVASTATIN 40 MG TAB PO SCH (23:30)
[2017-11-06] VITALS (8 sets, daily range): BP systolic 113–157; BP diastolic 56–79
[2017-11-06 07:12] LABS: BASOPHILS % 0.3 % (0.0-1.0); EOSINOPHILS # (AUTO) 0.1 (0.0-0.4); EOSINOPHILS % 1.9 % (0.0-6.0); HEMATOCRIT 42.4 % (38.2-49.6); HEMOGLOBIN 13.5 g/dL (14.0-18.0); LYMPHOCYTES # (AUTO) 1.9 (1.0-3.2); LYMPHOCYTES % 30.4 % (18.0-39.1); MEAN CORPUSCULAR HEMOGLOBIN 26.8 pg (28-32); MEAN CORPUSCULAR HGB CONC 31.8 g/dL (31-35); MEAN CORPUSCULAR VOLUME 84.1 fL (81-99); MONOCYTES # (AUTO) 0.8 (0.2-0.8); MONOCYTES % 12.2 % (4.4-11.3); NEUTROPHILS # (AUTO) 3.4 (2.1-6.9); PLATELET COUNT 246 x10e3/uL (140-360); RED BLOOD COUNT 5.04 x10e6/uL (4.3-5.7); RED CELL DISTRIBUTION WIDTH 13.9 % (11.7-14.4)
[2017-11-06] MEDS: INSULIN REGULAR, HUMAN 100 UNIT/1 ML 3ML VIAL SQ SCH ×4 (07:30→20:53)
[2017-11-06 07:40] LABS: ANION GAP 13.1 mmol/L (8-16); CALCIUM 9.1 mg/dL (8.4-10.2); CREATININE, SERUM 1.56 mg/dL (0.72-1.25); POTASSIUM 4.1 mmol/L (3.5-5.1)
[2017-11-06] MEDS: METOPROLOL TARTRATE 25 MG TAB PO SCH ×2 (10:25→17:38)
[2017-11-06] MEDS: ASPIRIN 81 MG CHEW TAB PO SCH (10:25)
[2017-11-06] MEDS: DIGOXIN 0.25 MG TAB PO SCH (10:25)
[2017-11-06] MEDS: APIXAB 2.5 MG TABLET PO SCH ×2 (10:25→17:38)
[2017-11-06] MEDS: AMIODARONE HCL 200 MG TAB PO SCH ×2 (10:25→17:38)
[2017-11-06] MEDS: INSULIN DETEMIR 100 UNIT/ML PEN SQ SCH (10:35)
[2017-11-06] MEDS: CEFTRIAXONE SOD 1 GM VIAL IV SCH (17:38)
[2017-11-06] MEDS: ATORVASTATIN 40 MG TAB PO SCH (20:52)
--- NOTE | 2017-11-07 06:02 | Discharge Summary ---
FINAL DISCHARGE DIAGNOSES 1. Nonischemic cardiomyopathy with an ejection fraction of 25% requiring Life Vest, now with medical management. 2. Acute exacerbation of congestive heart failure with systolic dysfunction. 3. Community-acquired pneumonia. 4. Atrial fibrillation. 5. Hypertension. 6. Morbidly obese. 7. Obstructive sleep apnea. 8. Chronic kidney disease, stage 3. 9. Uncontrolled type 2 diabetes. CONSULTANTS: Cardiology. VITAL SIGNS: Temperature is 97.3, pulse 77, respiratory rate is 20, blood pressure is 143/71, pulse ox is 96% on room air. LAB FINDINGS: Show white count of 6.2, hemoglobin 13.5, hematocrit 42, and platelets of 246,000. Coagulation: PT 14.5, INR 1.2 and PTT 25.6. Chemistry: Sodium 138, potassium 4.1, chloride 101 bicarb 28, anion gap of 13, BUN is 38, creatinine 1.5, glucose is 196. Point of care glucose is 247. Hemoglobin A1c was 9.3. His uric acid was 13. Phosphorus level was 5. Calcium is 9.1. LFTs were normal. Troponins were negative times 2. Albumin was 3.3. LDL cholesterol was 64 and his lipase was 57. TSH was 3.1. Urinalysis was negative. MICROBIOLOGY: Blood cultures negative. Urine cultures negative. IMAGING STUDIES: Renal ultrasound showed a solitary left kidney. Right kidney is not visualized. Left kidney is 13.3 cm and shows no evidence of any hydronephrosis, but shows normal echogenicity. His venous Doppler of the lower extremities showed no evidence of DVT. Chest x-ray showed pulmonary venous congestion. CT of chest showed patchy ground-glass opacity and intralobular septal thickening consistent with mild pulmonary edema. Focal pneumonia in the left lower lobe. He also has an 8 mm nonspecific right lower lobe nodule. Recommend CT of chest in 3 months for followup. I discussed this with the family and they verbalized understanding. They will follow up accordingly with their PCP. Diffuse hepatic steatosis with mild hepatomegaly. Similar findings on CT of chest. Chest x-ray repeat showed some central vascular congestion. HOSPITAL COURSE: This is a 57-year-old male morbidly obese, uncontrolled type 2 diabetes, who comes into the ED with complaints of shortness of breath, orthopnea and dyspnea on exertion with worsening anasarca. Patient was admitted and cardiology was consulted. Patient was started on a Lasix drip with much improvement in respiratory status. Cardiac enzymes were negative. Patient had a 2-D echo performed that showed an EF of less than 35%. Cardiology decided to do a left heart cath performed on November 05, 2017, that showed evidence of a nonischemic cardiomyopathy, but with no evidence of need of any stent placement. At this time, medical management was recommended by cardiology. Patient had a Life Vest placed prior to discharge home. He also was found to be in atrial fibrillation, which he was started on antiarrhythmics, as well as anticoagulation. He was found have also community-acquired pneumonia and started on antibiotics and discharged on oral Augmentin. He also had underlying acute kidney injury on CKD, stage 3. Last creatinine on discharge was 1.5 with much improvement. He was also started on Levemir, as well as pre-meal insulin with a hemoglobin A1c of 9.3. On discharge, the patient was doing well with no other complaints. He improved throughout the hospital course. He will be discharged on multiple medications including cardioprotective meds. He needs close followup with cardiology, primary care and renal. On the day of discharge, vital signs are stable and labs remained stable. Patient was seen, evaluated and examined thoroughly on the day of discharge. No other complaints. 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 MEDICATIONS: See med reconciliation form includin. Eliquis 2.5 mg 1 tab p.o. b.i.d. 2. Lipitor 40 mg 1 tab p.o. daily. 3. Lisinopril 2.5 mg 1 tab p.o. daily. 4. Amiodarone 200 mg 1 tab p.o. b.i.d. 5. Aspirin 81 mg daily. 6. Bumex 1 mg p.o. b.i.d. 7. Metoprolol 50 mg 1 tab p.o. b.i.d. 8. Digoxin 0.25 mg 1 tab p.o. daily. 9. Levemir 20 units subcutaneous at bedtime. 10. NovoLog 7 units is subcutaneous q.a.c. before meals. 11. Augmentin 875 mg 1 tab p.o. b.i.d. times 7 days. DISPOSITION: Home. CONDITION: Stable. DIET: Heart-healthy. FOLLOWUP: With your primary care physician this Saturday on November 08, 2017. Cardiology in 2 weeks and renal in 2 weeks. In the event of any worsening symptoms, the patient was to come back to the ED for further evaluation. Discharge summary took greater than 35 minutes. LIANNE VILLARREAL MD Job#: [id number] NADER
== END 2017-11-06 21:43 | disposition home or self-care (01) | DRG 286 ==
LOC: EDBD 10:41 → ER 10:41 → ERHOLD 13:18 → MED/SURG 11-03 17:44
PROVIDERS: ADMIT Internal Medicine; ATTEND Internal Medicine
PROC: 4A023N7 Measurement of Cardiac Sampling and Pressure, Left Heart, Percutaneous Approach (ICD-10-PCS; principal; 2017-11-02)
PROC: B2111ZZ Fluoroscopy of Multiple Coronary Arteries using Low Osmolar Contrast (ICD-10-PCS; 2017-11-02)
PROC: B2151ZZ Fluoroscopy of Left Heart using Low Osmolar Contrast (ICD-10-PCS; 2017-11-02)
DX: I13.0 Hypertensive heart and chronic kidney disease with heart failure and stage 1 through stage 4 chronic kidney disease, or unspecified chronic kidney disease (principal); J18.9 Pneumonia, unspecified organism; I31.3 Pericardial effusion (noninflammatory); I42.8 Other cardiomyopathies; Z68.42 Body mass index [BMI] 45.0-49.9, adult; E11.22 Type 2 diabetes mellitus with diabetic chronic kidney disease; N18.3 Chronic kidney disease, stage 3 (moderate); I50.21 Acute systolic (congestive) heart failure; I50.23 Acute on chronic systolic (congestive) heart failure; J44.1 Chronic obstructive pulmonary disease with (acute) exacerbation; I51.7 Cardiomegaly; E66.01 Morbid (severe) obesity due to excess calories; G47.33 Obstructive sleep apnea (adult) (pediatric); K76.0 Fatty (change of) liver, not elsewhere classified
CPT/HCPCS: 36140; 36415; 71045; 71250; 74176; 76770; 77002; 80048; 80053; 80061; 81001; 82140; 82150; 82306; 82550; 82553; 82948; 83036; 83690; 83735; 83880; 84100; 84132; 84443; 84484; 84550; 85025; 85610; 85730; 87040; 87086; 93005; 93306; 93458; 93970; 94640; 99284; J0696; J1160; J1650; J1940; J2001; J2250; J7030; J7060; Q9967

== ENCOUNTER 2017-11-15 11:18 | Inpatient (IN) | payer OTHER ==
[~2017-11-15] VITALS: Ht 274.3 cm; Wt 157.2 kg
[~2017-11-15 11:18] MED LIST: ASPIR 8181 MG PO; GABAPENTIN300 MG PO; HYDROCHLOROTHIA25 MG PO; LISINOPRIL10 MG PO; METFORMIN HCL500 MG PO; OMEPRAZOLE40 MG PO; PIOGLITAZONE HC45 MG PO; SIMVASTATIN40 MG PO; basaglar SC
--- OUTSIDE RECORDS SUMMARY | 2017-11-15 11:21 | XMS REPORT | Continuity of Care Document ---
Author Author [facility] Organization [facility] Address [address] [place] [address] Phone Unavailable Care Team Providers Care Gear Repairer Name Role Phone ELLYN DING MD PCP Insurance Providers Guarantor Pillo Bergeron Address [address] [place] [address] Email [email or web address] Payer [facility] Policy Number [id number] Subscriber's Name Pillo Bergeron Relationship 18 Self / Same As Patient Group Number [id number] Group Name [employer] - Medicare Advantage Divis Effective Date 17 Advance Directives Directive Response Recorded Date/Time Does the patient have an advance directive? No 11/04/17 2:51am If yes, is advance directive on file with [facility]? No 11/02/17 11:17am If not on file with [facility] will patient provide a copy? No 11/02/17 11:17am Do you have a Directive to Physician? No 11/02/17 11:17am Do you have a Medical Power of Wheat Grower? No 11/02/17 11:17am Do you have an out of hospital Do Not Resuscitate Order? No 11/02/17 11:17am Do you have any special needs we should be aware of? No 11/02/17 11:17am Do you have a support person here with you today? Yes 11/02/17 11:17am Did patient receive Notice of Privacy Practices? Yes 11/02/17 11:17am Did patient receive patient rights and responsibilities? Yes 11/02/17 11:17am Problems Medical Problem Onset Date Status Cardiomegaly Unknown Congestive heart failure (CHF) Unknown Dyspnea Unknown Obesity Unknown Renal insufficiency Unknown Tachycardia Unknown Medications Current Home Medications Medication Dose Units Route Directions Days Qty Instructions Start Date Aspirin (Aspir 81) 81 Mg Tablet. 81 Mg Oral Bedtime Gabapentin 300 Mg Capsule 300 Mg Oral Bedtime 60 Cap Omeprazole 40 Mg Capsule. 40 Mg Oral Daily Past Home Medications Medication Directions Ordered Status Basaglar , 80 Units Subcutaneously Twice A Day Discontinued Hydrochlorothiazide 25 Mg Tablet, 25 Mg Oral Daily Discontinued Lisinopril 10 Mg Tablet, 40 Mg Oral Daily Discontinued Metformin Hcl 500 Mg Tablet, 100 Mg Oral Twice Daily Before Meals Discontinued Pioglitazone Hcl 45 Mg Tablet, 30 Mg Oral Daily Discontinued Simvastatin 40 Mg Tablet, 40 Mg Oral Today At 9:00PM Discontinued Social History Social History Problem Response Recorded Date/Time Onset Date Status Hx Psychiatric Problems No 11/04/2017 2:51am Not Applicable Not Applicable Hx Eating Disorder No 11/04/2017 2:51am Not Applicable Not Applicable Hx Substance Use Disorder No 11/04/2017 2:51am Not Applicable Not Applicable Hx Depression No 11/04/2017 2:51am Not Applicable Not Applicable Hx Alcohol Use No 11/04/2017 2:51am Not Applicable Not Applicable Hx Substance Use Treatment No 11/04/2017 2:51am Not Applicable Not Applicable Hx Physical Abuse No 11/04/2017 2:51am Not Applicable Not Applicable Smoking Status Start Date Stop Date Former smoker Hospital Discharge Instructions No hospital discharge instruction information available. Plan of Care Discharge Date 11/06/17 9:43pm Disposition HOME, SELF-CARE Instructions/Education Provided Type 2 Diabetes Diabetes and Diet Congestive Heart Failure Heart Healthy Diet Prescriptions See Medication Section Additional Instructions/Education Cardiac Diabetic Diet Follow up with primary care physician on 11/08 Follow up with Manager Of Pharmacy in 2 weeks Follow up with Renal doctor in 2 weeks Keep life vest on at all times. Call [facility] office at [phone] if problems with presciptions or prescription costs. Patient education provided on new prescriptions. Functional Status Query Response Date Recorded Assistive Devices None November 04, 2017 2:35am Ambulation Ability Independent November 04, 2017 2:35am Toileting Ability Independent November 06, 2017 1:00pm Allergies, Adverse Reactions, Alerts No known allergies. Immunizations No immunization information available. Vital Signs Acute Vital Signs Vital Response Date/Time Temperature (Fahrenheit) 98.4 degrees F (97.6 - 99.5) 11/06/2017 8:00pm Pulse Pulse Rate (adult) 70 bpm (60 - 90) 11/06/2017 8:00pm Respiratory Rate 18 bpm (12 - 24) 11/06/2017 8:00pm Blood Pressure 113/56 mm Hg 11/06/2017 8:00pm Height 6 ft 3 in 11/02/2017 10:43am Weight 360 lb 11/04/2017 7:43am Body Mass Index 45.0 kg/m^2 11/06/2017 9:09am Results Laboratory Results Test Name Result Units Flags Reference Collection Date/Time Result Date/ Time Comments White Blood Count 6.22 x10e3/uL 4.8-10.8 11/06/2017 6:50am 11/06/2017 7 :13am Red Blood Count 5.04 x10e6/uL 4.3-5.7 11/06/2017 6:50am 11/06/2017 7: 13am Hemoglobin 13.5 g/dL L 14.0-18.0 11/06/2017 6:50am 11/06/2017 7:13am Hematocrit 42.4 % 38.2-49.6 11/06/2017 6:50am 11/06/2017 7:13am Mean Corpuscular Volume 84.1 fL 81-99 11/06/2017 6:50am 11/06/2017 7: 13am Mean Corpuscular Hemoglobin 26.8 pg L 28-32 11/06/2017 6:50am 2017 7:13am Mean Corpuscular Hemoglobin Concent 31.8 g/dL 31-35 11/06/2017 6:50am 11/06/2017 7:13am Red Cell Distribution Width 13.9 % 11.7-14.4 11/06/2017 6:50am 2017 7:13am Platelet Count 246 x10e3/uL 140-360 11/06/2017 6:50am 11/06/2017 7: 13am Neutrophils (%) (Auto) 55.0 % 38.7-80.0 11/06/2017 6:50am 11/06/2017 7: 13am Lymphocytes (%) (Auto) 30.4 % 18.0-39.1 11/06/2017 6:50am 11/06/2017 7: 13am Monocytes (%) (Auto) 12.2 % H 4.4-11.3 11/06/2017 6:50am 11/06/2017 7: 13am Eosinophils (%) (Auto) 1.9 % 0.0-6.0 11/06/2017 6:50am 11/06/2017 7: 13am Basophils (%) (Auto) 0.3 % 0.0-1.0 11/06/2017 6:50am 11/06/2017 7:13am IM GRANULOCYTES % 0.2 % 0.0-1.0 11/06/2017 6:50am 11/06/2017 7:13am Neutrophils # (Auto) 3.4 2.1-6.9 11/06/2017 6:50am 11/06/2017 7:13am Lymphocytes # (Auto) 1.9 1.0-3.2 11/06/2017 6:50am 11/06/2017 7:13am Monocytes # (Auto) 0.8 0.2-0.8 11/06/2017 6:50am 11/06/2017 7:13am Eosinophils # (Auto) 0.1 0.0-0.4 11/06/2017 6:50am 11/06/2017 7:13am Basophils # (Auto) 0.0 0.0-0.1 11/06/2017 6:50am 11/06/2017 7:13am Absolute Immature Granulocyte (auto 0.01 x10e3/uL 0-0.1 11/06/2017 6: 50am 11/06/2017 7:13am Prothrombin Time 14.5 seconds 11.9-14.5 11/02/2017 10:50am 11/02/2017 11:16am Prothromb Time International Ratio 1.22 11/02/2017 10:50am 2017 11:16am Oral Anticoagulant Therapy INR Values: 1. Low Intensity Therapy 1.5 - 2.0 2. Moderate Intensity Therapy 2.0 - 3.0 3. High Intensity Therapy(1) 2.5 - 3.5 4. High Intensity Therapy(2) 3.0 - 4.0 5. Panic Value INR > 5.0 Activated Partial Thromboplast Time 25.6 seconds 23.8-35.5 11/02/2017 10 :50am 11/02/2017 11:16am Urine Color YELLOW YELLOW 11/02/2017 10:58am 11/02/2017 11:21am Urine Clarity HAZY CLEAR 11/02/2017 10:58am 11/02/2017 11:21am Urine Specific [place] 1.020 1.010-1.025 11/02/2017 10:58am 2017 11:21am Urine pH 5 5 - 7 11/02/2017 10:58am 11/02/2017 11:21am Urine Leukocyte Esterase NEGATIVE NEGATIVE 11/02/2017 10:58am 2017 11:21am Urine Nitrite NEGATIVE NEGATIVE 11/02/2017 10:58am 11/02/2017 11: 21am Urine Protein 2+ H NEGATIVE 11/02/2017 10:58am 11/02/2017 11:21am Urine Glucose (UA) NEGATIVE NEGATIVE 11/02/2017 10:58am 11/02/2017 11 :21am Urine Ketones NEGATIVE NEGATIVE 11/02/2017 10:58am 11/02/2017 11: 21am Urine Urobilinogen 0.2 mg/dL 0.2 - 1 11/02/2017 10:58am 11/02/2017 11: 21am Urine Bilirubin 1+ H NEGATIVE 11/02/2017 10:58am 11/02/2017 11:21am Confirmatory test currently unavailable. False positive results may occur. Urine Blood NEGATIVE NEGATIVE 11/02/2017 10:58am 11/02/2017 11:21am Urine WBC 0-5 /HPF 0-5 11/02/2017 10:58am 11/02/2017 11:25am Urine RBC 0-5 /HPF 0-5 11/02/2017 10:58am 11/02/2017 11:25am Urine Bacteria FEW /HPF NONE 11/02/2017 10:58am 11/02/2017 11:25am Urine Epithelial Cells FEW /LPF NONE 11/02/2017 10:58am 11/02/2017 11: 25am Urine Fine Granular Casts 1-5 H 0 11/02/2017 10:58am 11/02/2017 11: 25am Sodium Level 138 mmol/L 136-145 11/06/2017 6:50am 11/06/2017 7:41am Potassium Level 4.1 mmol/L 3.5-5.1 11/06/2017 6:50am 11/06/2017 7:41am Chloride Level 101 mmol/L 98-107 11/06/2017 6:50am 11/06/2017 7:41am Carbon Dioxide Level 28 mmol/L 22-11/06/2017 6:50am 11/06/2017 7: 41am Anion Gap 13.1 mmol/L 8-11/06/2017 6:50am 11/06/2017 7:41am Blood Urea Nitrogen 38 mg/dL H 7-11/06/2017 6:50am 11/06/2017 7:41am Creatinine 1.56 mg/dL H 0.72-1.25 11/06/2017 6:50am 11/06/2017 7:41am BUN/Creatinine Ratio 24 6-25 11/06/2017 6:50am 11/06/2017 7:41am Estimat Glomerular Filtration Rate 46 ML/MIN L 60- 11/06/2017 6:50am 7:41am Ranges were taken from the National Kidney Disease Education Program and the National Kidney Foundation literature. Reference ranges: 60 or greater: Normal 16-59 (for 3 consecutive months): Chronic kidney disease 15 or less: Kidney failure Glucose Level 196 mg/dL H 74-118 11/06/2017 6:50am 11/06/2017 7:41am Calcium Level 9.1 mg/dL 8.4-10.2 11/06/2017 6:50am 11/06/2017 7:41am Bedside Glucose 275 mg/dL H 70-120 11/06/2017 8:50pm 11/06/2017 9:26pm Meter ID: [id number] Hemoglobin A1c Percent 9.3 % H 4.0-7.0 11/03/2017 1:11/03/2017 1: 40am Uric Acid 13.3 mg/dL H 4.8-8.0 11/03/2017 1:11/03/2017 1:40am Phosphorus Level 5.0 MG/DL H 2.3-4.7 11/03/2017 1:11/03/2017 1: 40am Magnesium Level 1.6 MG/DL 1.3-2.1 11/04/2017 3:58pm 11/04/2017 4:20pm Total Bilirubin 0.5 mg/dL 0.2-1.2 11/03/2017 1:11/03/2017 1:41am Aspartate Amino Transf (AST/SGOT) 27 IU/L 5-34 11/03/2017 1:2017 1:41am Alanine Aminotransferase (ALT/SGPT) 48 IU/L 0-55 11/03/2017 1: 1:41am Ammonia 41 UG/DL 31-123 11/02/2017 11:24am 11/02/2017 12:00pm Total Protein 7.3 g/dL 6.5-8.1 11/03/2017 1:11/03/2017 1:41am Albumin 3.3 g/dL L 3.5-5.0 11/03/2017 1:11/03/2017 1:41am Globulin 4.0 g/dL H 2.3-3.5 11/03/2017 1:11/03/2017 1:41am Albumin/Globulin Ratio 0.8 0.8-2.0 11/03/2017 1:11/03/2017 1: 41am Alkaline Phosphatase 99 IU/L 40-150 11/03/2017 1:11/03/2017 1: 41am Triglycerides Level 283 MG/DL H 0-149 11/03/2017 1:11/03/2017 1: 40am Cholesterol Level 153 MD/DL 0-199 11/03/2017 1:11/03/2017 1:40am Less than 200 mg/dL Low Risk 201 - 239 mg/dL Borderline Risk 240 mg/dl and greater High Risk LDL Cholesterol 64 MG/DL 60-130 11/03/2017 1:11/03/2017 1:40am HDL Cholesterol 32 MG/DL L 40-60 11/03/2017 1:10am 11/03/2017 1:40am Cholesterol/HDL Ratio 4.8 H 3.9-4.7 11/03/2017 1:10am 11/03/2017 1: 40am B-Type Natriuretic Peptide 210.4 pg/mL H 0-100 11/02/2017 10:50am 2017 11:33am Creatine Kinase 198 IU/L 30-200 11/03/2017 1:10am 11/03/2017 1:47am Creatine Kinase MB 6.90 ng/mL H 0-5.0 11/03/2017 1:10am 11/03/2017 2: 18am Troponin I 0.055 ng/mL 0-0.300 11/03/2017 1:10am 11/03/2017 2:18am Amylase Level 61 U/L 25-125 11/03/2017 1:10am 11/03/2017 1:40am Lipase 57 U/L 8-78 11/03/2017 1:10am 11/03/2017 1:40am Thyroid Stimulating Hormone (TSH) 3.181 uIU/mL 0.350-4.940 11/03/2017 1: 10am 11/03/2017 2:18am Microbiology Results Procedure Source Organism/Result Collection Date/Time Result Date/Time Result Status Blood Culture Blood NO GROWTH AFTER 72 HOURS 11:24am 11/05/2017 11:33am Preliminary Procedures Procedure Status Date Provider(s) CT of abdomen and pelvis without contrast Active 11/02/17 RACIEL CRANE Computed tomography of chest without contrast Active 11/02/17 RACIEL CRANE Ultrasound, renal Active 11/02/17 LIANNE MARTINEZ MD Encounters Encounter Location Arrival/Admit Date Discharge/Depart Date Attending Provider Discharged Inpatient [facility] 11/02/17 1:18pm 11/06/17 9:43pm LIANNE MARTINEZ MD
[2017-11-15 12:02] LABS: BASOPHILS % 0.5 % (0.0-1.0); EOSINOPHILS # (AUTO) 0.1 (0.0-0.4); EOSINOPHILS % 1.4 % (0.0-6.0); HEMATOCRIT 49.2 % (38.2-49.6); HEMOGLOBIN 15.9 g/dL (14.0-18.0); LYMPHOCYTES # (AUTO) 1.9 (1.0-3.2); LYMPHOCYTES % 25.8 % (18.0-39.1); MEAN CORPUSCULAR HEMOGLOBIN 26.9 pg (28-32); MEAN CORPUSCULAR HGB CONC 32.3 g/dL (31-35); MEAN CORPUSCULAR VOLUME 83.1 fL (81-99); MONOCYTES # (AUTO) 0.7 (0.2-0.8); MONOCYTES % 9.5 % (4.4-11.3); NEUTROPHILS # (AUTO) 4.6 (2.1-6.9); NEUTROPHILS % 62.4 % (38.7-80.0); PLATELET COUNT 254 x10e3/uL (140-360); RED BLOOD COUNT 5.92 x10e6/uL (4.3-5.7)
[2017-11-15 12:03] LABS: LEUKOCYTE ESTERASE ,URINE NEGATIVE (NEGATIVE)
[2017-11-15 12:04] LABS: BILIRUBIN,URINE NEGATIVE (NEGATIVE); CLARITY,URINE CLEAR (CLEAR); COLOR,URINE YELLOW (YELLOW); KETONES,URINE NEGATIVE (NEGATIVE); NITRITE,URINE NEGATIVE (NEGATIVE); PROTEIN,URINE DIPSTICK 2+ (NEGATIVE); URINE UROBILINOGEN 0.2 mg/dL (0.2 - 1)
[2017-11-15 12:08] LABS: INR 1.27; PROTHROMBIN TIME 14.9 seconds (11.9-14.5)
[2017-11-15 12:09] LABS: PARTIAL THROMBOPLASTIN TIME 27.4 seconds (23.8-35.5)
--- NOTE | 2017-11-15 12:14 | Diagnostic Imaging Report ---
PROCEDURE: Frontal and lateral views of the chest. COMPARISON: Portable chest 11/03/2017. INDICATIONS: WEAKNESS, CHF, SHORTNESS OF BREATH, ABDOMEN PAIN FINDINGS: Lines/tubes: None. Lungs: The lungs are well inflated and clear. There is no evidence of pneumonia or pulmonary edema. Pleura: There is no pleural effusion or pneumothorax. Heart and mediastinum: The heart and the mediastinum are normal. Bones: No acute bony abnormality. Degenerative changes of the thoracic spine. IMPRESSION: No acute radiographic abnormality. Dictated by: John Wood M.D. on 11/15/2017 at 12:14 Electronically approved by: John Wood M.D. on 11/15/2017 at 12:14
[2017-11-15 12:16] LABS: EPITHELIAL CELLS,URINE RARE /LPF
[2017-11-15 12:17] LABS: WBC,URINE (MAN) 0-5 /HPF (0-5)
[2017-11-15 12:20] LABS: ALBUMIN 3.9 g/dL (3.5-5.0); ALBUMIN/GLOBULIN RATIO 0.8 (0.8-2.0); ANION GAP 19.8 mmol/L (8-16); CALCIUM 9.9 mg/dL (8.4-10.2); CREATININE, SERUM 2.55 mg/dL (0.72-1.25); POTASSIUM 4.8 mmol/L (3.5-5.1)
[2017-11-15 12:27] LABS: CREATINE KINASE MB 2.2 ng/mL (0-5.0)
[2017-11-15] MEDS ORDERED: DEXTROSE 50% SYRINGE 50 ML IV PRN (13:15)
[2017-11-15] MEDS ORDERED: SODIUM CHLORIDE FLUSH 10 ML SYR INJ PRN (13:15)
[2017-11-15] MEDS ORDERED: ASPIRIN 81 MG CHEW TAB PO ONE (13:15)
[2017-11-15] MEDS: MORPHINE SULFATE 2 MG/ML SYR IV PRN (13:49)
[2017-11-15] MEDS: INSULIN REGULAR, HUMAN 100 UNIT/1 ML 3ML VIAL SQ SCH ×2 (13:54→21:00)
[2017-11-15] MEDS ORDERED: ONDANSETRON HCL INJ 2 MG/ML VIAL IV STA (13:59)
--- NOTE | 2017-11-15 16:06 | Diagnostic Imaging Report ---
PROCEDURE:X-RAY ABDOMEN - KUB COMPARISON:None. INDICATIONS:MID ABDOMINAL PAIN FINDINGS: Non-obstructive bowel gas pattern. No calcifications overlie the renal silhouettes or expected course of the ureters or bladder. No acute osseous or soft tissue abnormalities. Degenerative changes of the lumbar spine. CONCLUSION: Non-obstructive bowel gas pattern. Dictated by: Jt Hathaway M.D. on 11/15/2017 at 16:06 Electronically approved by: Jt Hathaway M.D. on 11/15/2017 at 16:06
--- NOTE | 2017-11-15 17:03 | Consultation ---
DATE OF CONSULTATION: November 15, 2017 REASON FOR CONSULTATION: Chest pain. HISTORY OF PRESENT ILLNESS: This is a 57-year-old morbidly obese male who presented with abdominal pain. According to the patient, he is having problem eating, no appetite and unable to eat his food. He also started having abdominal pain that felt like cramps, and he decided to come into the emergency room for evaluation. He has a history of nonischemic cardiomyopathy with recent cardiac catheterization, low ejection fraction, has a LifeVest on and was discharged home last week. He denied any chest pain, any palpitations, any dizziness, diaphoresis, shortness of breath or headache. Troponin x1 was negative. Chest x-ray showed no acute radiographic abnormalities. BNP 96.8. An EKG showed no ST abnormalities. PAST MEDICAL HISTORY: Diabetes, morbid obesity, obstructive sleep apnea, hypertension, hyperlipidemia, history of DVT to the right leg, CHF, chronic kidney disease, atrial fibrillation, pneumonia and nonischemic cardiomyopathy. PAST SURGICAL HISTORY: Recent cardiac catheterization with medical management and LifeVest. FAMILY HISTORY: Positive for hypertension, DVTs, and diabetes. SOCIAL HISTORY: No smoking and no drinking. He lives at home with his . MEDICATIONS: See medication list. ALLERGIES: SHE IS NOT ALLERGIC TO ANY MEDICATION. REVIEW OF SYSTEMS: Negative except as mentioned above. Positive for abdominal pain. PHYSICAL EXAMINATION VITAL SIGNS: Temperature 96, heart rate 79, respirations 16, blood pressure 145/83, oxygen saturation 97% on room air. GENERAL: He is morbidly obese, awake, alert and oriented x3. HEENT: Mucous membranes moist. NECK: Supple. LUNGS: Bilaterally clear to auscultation. CARDIOVASCULAR: S1 and S2 present. ABDOMEN: Soft. NEUROLOGIC: Intact. He is able to move all extremities. EXTREMITIES: Bilateral lower extremities with no edema. LABORATORY DATA: Sodium 137, potassium 4.8, chloride 97, CO2 of 25, BUN 47, creatinine 2.55, glucose 247. White blood cells 7.30, red blood cells 5.92. Hemoglobin 15.5, hematocrit 49.2, platelets 254,000. Digoxin level 3.12. IMPRESSION 1. Abdominal pain. 2. Elevated digoxin level. 3. History of nonischemic cardiomyopathy and he is wearing a LifeVest. 4. Diabetes. 5. Hypertension. 6. Obesity. 7. History of atrial fibrillation. ASSESSMENT AND PLAN: He was here last week. He had an echo with EF 35% and he is wearing a LifeVest for nonischemic cardiomyopathy after a recent cardiac catheterization. His troponin x1 is negative, so we will get serial cardiac enzymes. Get a KUB. Hold digoxin and check the level tomorrow morning. Heart rate fluctuates from 40s to 80s, but there is normal sinus rhythm. Further cardiac workup pending clinical course. Thank you for this consultation Dictated by Maryam Matute NP Job#: [id number]
[2017-11-15 17:09] VITALS: BP 150/71
[2017-11-15 18:33] VITALS: BP 150/71
[2017-11-15 18:36] VITALS: BP 150/71
[2017-11-15 20:00] VITALS: BP 128/62
[2017-11-15 20:28] LABS: CREATINE KINASE MB 1.8 ng/mL (0-5.0)
[2017-11-16] VITALS (7 sets, daily range): BP systolic 109–133; BP diastolic 56–69
[2017-11-16 06:28] LABS: BASOPHILS % 0.5 % (0.0-1.0); EOSINOPHILS # (AUTO) 0.1 (0.0-0.4); EOSINOPHILS % 1.5 % (0.0-6.0); HEMATOCRIT 44.8 % (38.2-49.6); HEMOGLOBIN 14.3 g/dL (14.0-18.0); LYMPHOCYTES # (AUTO) 2.5 (1.0-3.2); LYMPHOCYTES % 33.9 % (18.0-39.1); MEAN CORPUSCULAR HEMOGLOBIN 26.7 pg (28-32); MEAN CORPUSCULAR HGB CONC 31.9 g/dL (31-35); MEAN CORPUSCULAR VOLUME 83.6 fL (81-99); MONOCYTES # (AUTO) 0.7 (0.2-0.8); NEUTROPHILS # (AUTO) 3.9 (2.1-6.9); NEUTROPHILS % 53.8 % (38.7-80.0); PLATELET COUNT 210 x10e3/uL (140-360); RED BLOOD COUNT 5.36 x10e6/uL (4.3-5.7); RED CELL DISTRIBUTION WIDTH 14.2 % (11.7-14.4)
[2017-11-16 06:42] LABS: INR 1.17; PARTIAL THROMBOPLASTIN TIME 26.9 seconds (23.8-35.5)
[2017-11-16 06:48] LABS: ALBUMIN 3.4 g/dL (3.5-5.0); ALBUMIN/GLOBULIN RATIO 0.8 (0.8-2.0); ANION GAP 17.2 mmol/L (8-16); CALCIUM 9.3 mg/dL (8.4-10.2); CHOL/HDL RATIO 5.6 (3.9-4.7); CREATININE, SERUM 3.1 mg/dL (0.72-1.25); MAGNESIUM 1.2 MG/DL (1.3-2.1); PHOSPHORUS 4.3 MG/DL (2.3-4.7); POTASSIUM 4.2 mmol/L (3.5-5.1)
[2017-11-16 06:50] LABS: CREATINE KINASE MB 1.4 ng/mL (0-5.0)
[2017-11-16] MEDS: PANTOPRAZOLE SOD 40 MG TABEC PO SCH (07:53)
[2017-11-16] MEDS: ASPIRIN 81 MG ENTERIC COATED PO SCH (07:53)
[2017-11-16] MEDS: MORPHINE SULFATE 2 MG/ML SYR IV PRN ×2 (07:53→18:44)
[2017-11-16] MEDS: INSULIN REGULAR, HUMAN 100 UNIT/1 ML 3ML VIAL SQ SCH ×4 (07:54→21:00)
[2017-11-16] MEDS ORDERED: DIATRIZOATE MEGL/DIATRIZOA SOD 30 ML BTL PO ONE (11:20)
[2017-11-16] MEDS ORDERED: ONDANSETRON HCL INJ 2 MG/ML VIAL IV PRN (13:45)
[2017-11-16] MEDS ORDERED: HYDRALAZINE HCL 25 MG TAB PO PRN (14:00)
--- NOTE | 2017-11-16 14:13 | Diagnostic Imaging Report ---
EXAM: CT Abdomen WITHOUT contrast INDICATION: \S\Abdomenal Pain \S\[id number] \S\1300 COMPARISON: None. TECHNIQUE: Abdomen was scanned utilizing a multidetector helical scanner from the lung base to the iliac crest without administration of IV contrast. Absence of intravenous contrast decreases sensitivity for detection of focal lesions and vascular pathology. Coronal and sagittal reformations were obtained. Routine protocol was performed. IV CONTRAST: None ORAL CONTRAST: Water COMPLICATIONS: None RADIATION DOSE: Total DLP: 979.8 mGy*cm Estimated effective dose: (DLP x 0.015 x size factor) mSv CTDIvol has been reviewed. It is below the limits set by the Radiation Protocol Committee (RPC). FINDINGS: LINES and TUBES: None. LOWER THORAX: Increased small right pleural effusion with adjacent atelectasis. Previously noted right lower lobe lower lobe nodule obscured by pleural effusion. Decrease in the visualized portions of the left lower lobe pneumonia. HEPATOBILIARY: Liver ranging enlarged in craniocaudal dimension with small left hepatic lobe consistent with Agnieszka's lobe. No focal hepatic lesions. No biliary ductal dilation. GALLBLADDER: No radio-opaque stones or sludge. No wall thickening. Resolution of the fat stranding adjacent to the gallbladder. SPLEEN: Mild splenomegaly measuring 13.7 cm in AP dimension. PANCREAS: No focal masses or ductal dilatation. ADRENALS: Two left adrenal 1.8 cm myelolipomas. No right adrenal nodules. KIDNEYS/URETERS: Right kidney is not visualized, completely absent on CT abdomen and pelvis 11/02/2017. Stable nonspecific perinephric stranding around the left kidney. No hydronephrosis. No cystic or solid mass lesions. No stones. GI TRACT: No abnormal distention, wall thickening, or evidence of bowel obstruction. Appendix is normal. LYMPH NODES: No lymphadenopathy. VESSELS: There is mild atherosclerotic disease in the aorta and major arterial branches. PERITONEUM / RETROPERITONEUM: No free air or fluid. BONES: There are degenerative changes in the lumbar spine. SOFT TISSUES: Unremarkable. IMPRESSION: 1. No acute abnormalities in the abdomen. 2. Increased small right pleural effusion. 3. Two left adrenal myelolipomas. Signed by: DR. Jt Hathaway MD on 11/16/2017 2:09 PM
--- NOTE | 2017-11-16 14:25 | Diagnostic Imaging Report ---
EXAM: Renal Ultrasound INDICATION: \S\[id number] \S\[id number] COMPARISON: Same day noncontrast CT abdomen. TECHNIQUE: Transverse and longitudinal images of the kidneys and bladder were obtained. FINDINGS: Right Kidney: Absent Left Kidney: Size: 15.4 cm, enlarged likely secondary to compensatory hypertrophy. Echogenicity: Normal Parenchymal thickness: Normal Collecting system: No hydronephrosis Stones: None Cyst/Mass: None Bladder: Normal Prevoid volume: 136 cc Post void volume: 19.6 cc IMPRESSION: 1. Absence right kidney. 2. No left hydronephrosis. Left nephromegaly likely related to compensatory hypertrophy. 3. No significant post void residuals in the bladder. Signed by: DR. Jt Hathaway MD on 11/16/2017 2:21 PM
[2017-11-16] MEDS ORDERED: SODIUM CHLORIDE 0.45% 1,000 ML IV ONE (14:30)
--- NOTE | 2017-11-16 15:43 | History and Physical ---
PRIMARY CARE PROVIDER: Albert Castrejon MD CONSULTANTS: Dr. Cynthia Ramírez and Dr. Leilani Romero CHIEF COMPLAINT: Abdominal pain and digoxin toxicity. HISTORY: This is a 57-year-old male who came in with abdominal pain. The digoxin level is high at 3.1 on admission. The patient is otherwise stable at this time. He was bradycardic but now in normal sinus rhythm. He has history of nonischemic cardiomyopathy with ejection fraction of approximately 25% to 30%. He is wearing a LifeVest. The patient is otherwise stable at this time. PAST MEDICAL HISTORY: Nonischemic cardiomyopathy associated with congestive heart failure. It is compensated. Recent community-acquired pneumonia. History of atrial fibrillation, hypertension, morbid obesity, obstructive sleep apnea, chronic kidney disease stage 3, and uncontrolled diabetes, type 2. PAST SURGICAL HISTORY: Noncontributory. SOCIAL HISTORY: Patient does not smoke or use alcohol. No recreational drug use. ALLERGIES: NO KNOWN ALLERGIES. HOME MEDICATIONS: On last discharge were: 1. Eliquis 2.5 mg twice a day. 2. Lipitor 40 mg once a day. 3. Lisinopril 2.5 mg daily. 4. Amiodarone 2 mg b.i.d. 5. Aspirin 81 mg daily. 6. Bumex 1 mg b.i.d. 7. Metoprolol 50 mg b.i.d. 8. Digoxin 0.125 mg daily. 9. Levemir 20 units subcutaneous at bedtime. 10. NovoLog 7 units before meals. 11. Augmentin. PHYSICAL EXAMINATION VITAL SIGNS: Temperature 98. Blood pressure 124/69. Pulse rate 76. Respirations 18. GENERAL: The patient is not in acute distress. He is awake. HEENT: Normocephalic, atraumatic, anicteric. NECK: Supple grossly. PULMONARY: Diminished breath sounds, but no wheezing and no rales. CARDIOVASCULAR: S1 and S2. Regular rate and rhythm. ABDOMEN: Soft, obese. EXTREMITIES: No cyanosis or edema. NEUROLOGIC: There is no gross focal deficit. LABORATORY: Digoxin level is 3.12 to 3.32. Coagulation INR is 1.27. WBC 7.3. Hemoglobin 14. Hematocrit 44.8. Platelets 210. Chemistry: Sodium 136, potassium 4.2, chloride 98, bicarb 25, BUN 57, creatinine 3.1. Glucose is 169. IMPRESSION 1. Digoxin toxicity contributing to the patient's symptoms. 2. Multiple chronic baseline problems. PLAN: Gentle IV fluid rehydration. Hold off some of the rate control medication. Discontinue digoxin for now. Monitor patient closely. Resume some of the patient's home medications. Will monitor the patient closely. Job#: [id number]
[2017-11-16] MEDS: APIXAB 2.5 MG TABLET PO SCH (17:12)
[2017-11-16] MEDS: INSULIN DETEMIR 100 UNIT/ML PEN SQ SCH (22:03)
[2017-11-16] MEDS: GABAPENTIN 300 MG CAP PO SCH (22:04)
[2017-11-17] VITALS (8 sets, daily range): BP systolic 114–149; BP diastolic 53–75
[2017-11-17 07:13] LABS: ANION GAP 15.3 mmol/L (8-16); CALCIUM 8.9 mg/dL (8.4-10.2); CREATININE, SERUM 2.15 mg/dL (0.72-1.25); POTASSIUM 4.3 mmol/L (3.5-5.1)
[2017-11-17] MEDS: APIXAB 2.5 MG TABLET PO SCH ×2 (08:49→16:44)
[2017-11-17] MEDS: PANTOPRAZOLE SOD 40 MG TABEC PO SCH (08:49)
[2017-11-17] MEDS: ASPIRIN 81 MG ENTERIC COATED PO SCH (08:49)
[2017-11-17] MEDS ORDERED: FUROSEMIDE INJ 10 MG/ML 2 ML VIAL IV SCH (09:00)
[2017-11-17] MEDS: INSULIN REGULAR, HUMAN 100 UNIT/1 ML 3ML VIAL SQ SCH ×4 (09:01→21:13)
[2017-11-17] MEDS: GABAPENTIN 300 MG CAP PO SCH (21:11)
[2017-11-17] MEDS: INSULIN DETEMIR 100 UNIT/ML PEN SQ SCH (21:13)
[2017-11-18] VITALS: BP 130/69
[2017-11-18 04:00] VITALS: BP 116/73
[2017-11-18 07:51] VITALS: BP 164/77
[2017-11-18 08:01] LABS: ANION GAP 14.6 mmol/L (8-16); CALCIUM 9.1 mg/dL (8.4-10.2); CREATININE, SERUM 1.78 mg/dL (0.72-1.25); POTASSIUM 4.6 mmol/L (3.5-5.1)
[2017-11-18 08:06] LABS: DIGOXIN 2.11 ng/mL (0.8-2.0)
[2017-11-18 08:50] VITALS: BP 164/77
[2017-11-18] MEDS: APIXAB 2.5 MG TABLET PO SCH (08:50)
[2017-11-18] MEDS: INSULIN REGULAR, HUMAN 100 UNIT/1 ML 3ML VIAL SQ SCH (08:50)
[2017-11-18] MEDS: ASPIRIN 81 MG ENTERIC COATED PO SCH (08:50)
[2017-11-18] MEDS: PANTOPRAZOLE SOD 40 MG TABEC PO SCH (08:50)
--- NOTE | 2017-11-18 08:50 | Discharge Summary ---
PCP: Dr. Albert Castrejon CONSULTANTS: Dr. Leilani Romero FINAL DIAGNOSES 1. Acute kidney injury. 2. Digoxin toxicity. 3. Baseline cardiomyopathy, nonischemic. SUMMARY: This is a 57-year-old male who came in with abdominal pain. Patient has digoxin toxicity. Level of digoxin was 3.12. It went up to 3.3 the subsequent day. Patient also had acute kidney injury on chronic kidney disease. Baseline chronic disease stage, 3. Patient's BUN and creatinine was elevated on admission. The BUN was 47 and creatinine was 2.55. Patient was given gentle IV fluids and then subsequently . His lab work is much improved. BUN and creatinine is 39 and 1.7 respectively. Digoxin level has gone down to 2.11. Debra is less than 2. . Patient was on digoxin 0.25 mg previously. He is also on lisinopril 2.5 mg daily. Both medications were discontinued. The patient is stable. He will go home today. Advised the patient to resume digoxin 0.25 mg on morning. The patient is stable. Follow up with Dr. Albert Castrejon and his ammonia operator within 1-2 weeks. Job#: [id number] NADER
[2017-11-18] MEDS ORDERED: DIGOXIN125 MCG PO (09:41)
--- NOTE | 2017-11-18 09:43 | Consultation ---
DATE OF CONSULTATION: November 18, 2017 A 57-year-old gentleman with long-standing history of diabetes with history of diabetic neuropathy, retinopathy, hypertension. Has ischemic cardiomyopathy and was on digoxin. Came in with digoxin toxicity. Digoxin has been stopped. He is found to have elevated creatinine of 2.15. He is otherwise comfortable and laying supine. Patient denies any prior history of any renal insufficiency. Interestingly, he is aware that he has only 1 kidney. His right kidney is absent. His father had 1 kidney as well he claims. He otherwise has a history of hyperlipidemia. Currently, awake, alert and laying supine. No apparent distress. Denies nausea, vomiting or shortness of breath. ALLERGIES: NO APPARENT DRUG ALLERGIES. CURRENT MEDICATIONS: Insulin, aspirin, morphine, gabapentin, apixaban, pantoprazole, hydralazine 50 mg q.4 h. SOCIAL HISTORY: Does not smoke or drink. FAMILY HISTORY: Significant for diabetes and a solitary kidney in his father. PHYSICAL EXAMINATION GENERAL: Awake, alert and laying supine. No apparent distress. VITALS: Blood pressure 164/77, pulse rate 80, afebrile, respiratory rate 20, oxygen saturation 96% on room air. HEAD AND NECK: Cornea clear. Mucosa dry. Neck veins flat. LUNGS: Relatively clear. No rales or rhonchi. HEART: S1 and S2 audible. Soft 1-2/6 ejection systolic murmur heard over the left sternal border. ABDOMEN: Otherwise, soft and nontender. No apparent visceromegaly. LOWER EXTREMITIES: No edema. IMPRESSION AND PLAN 1. Acute kidney injury with underlying diabetic nephropathy. 2. Possible proteinuria: Kidney ultrasound shows 15.4 cm left kidney and right kidney absent. 3. Admitted with digoxin toxicity: Digoxin has been held. Will strongly recommend not to resume digoxin in the future. Plan on working up kidney function. He will need followup in the office. Discussed with the patient avoidance of nonsteroidal anti-inflammatory drug medications. Discussed hold off on using DAI inhibitors at this point in time. Change hydralazine to 50 mg q.6 h. That would be my recommendation. Please see orders. Job#: [id number] [place]
== END 2017-11-18 10:31 | disposition home or self-care (01) | DRG 683 ==
LOC: ER 11:18 → ERHOLD 13:40 → IMCU 15:42 → INTOOBSV 11-16 13:44 → OBSVTOIN 11-16 13:44 → MED/SURG 11-18 05:00
PROVIDERS: ADMIT Internal Medicine; ATTEND Internal Medicine
DX: N17.9 Acute kidney failure, unspecified (principal); I42.9 Cardiomyopathy, unspecified; E11.22 Type 2 diabetes mellitus with diabetic chronic kidney disease; I13.0 Hypertensive heart and chronic kidney disease with heart failure and stage 1 through stage 4 chronic kidney disease, or unspecified chronic kidney disease; I50.9 Heart failure, unspecified; R10.9 Unspecified abdominal pain; T46.0X5A Adverse effect of cardiac-stimulant glycosides and drugs of similar action, initial encounter; N18.3 Chronic kidney disease, stage 3 (moderate); I48.91 Unspecified atrial fibrillation; G47.33 Obstructive sleep apnea (adult) (pediatric); Z79.01 Long term (current) use of anticoagulants; Z79.82 Long term (current) use of aspirin; Z79.4 Long term (current) use of insulin; E11.40 Type 2 diabetes mellitus with diabetic neuropathy, unspecified; E11.319 Type 2 diabetes mellitus with unspecified diabetic retinopathy without macular edema; Z86.718 Personal history of other venous thrombosis and embolism; I49.3 Ventricular premature depolarization; R00.1 Bradycardia, unspecified; K29.70 Gastritis, unspecified, without bleeding
CPT/HCPCS: 36415; 71046; 74018; 74150; 76770; 80048; 80053; 80061; 80162; 81001; 82550; 82553; 82948; 83690; 83735; 83880; 84100; 84484; 85025; 85610; 85730; 93005; 96372; 99284; G0378; J1940; J2270; J2405

== ENCOUNTER 2017-12-23 12:42 | Inpatient (IN) | payer OTHER ==
[~2017-12-23] VITALS: Ht 190.5 cm; Wt 143.8 kg
[~2017-12-23 12:42] MED LIST changes: +DIGOXIN125 MCG PO
--- OUTSIDE RECORDS SUMMARY | 2017-12-23 12:44 | XMS REPORT | Continuity of Care Document ---
Author Author [facility] Organization [facility] Address [address] [place] [address] Phone Unavailable Care Team Providers Care Egg Trayer Name Role Phone ELLYN DING MD PCP Insurance Providers Guarantor Pillo Bergeron Address [address] [place] [address] Email [email or web address] [email or web address] Policy Number [id number] Subscriber's Name Pillo Bergeron Relationship 18 Self / Same As Patient Group Number [id number] Group Name [facility] - Medicare Advantage Divis Effective Date 17 Advance Directives Directive Response Recorded Date/Time Does the patient have an advance directive? No 11/15/17 6:34pm If yes, is advance directive on file with [facility]? No 11/15/17 6:34pm If not on file with [facility] will patient provide a copy? No 11/15/17 6:34pm Do you have a Directive to Physician? No 11/15/17 11:53am Do you have a Medical Power of Hydrop[employer] Grower? No 11/15/17 11:53am Do you have an out of hospital Do Not Resuscitate Order? No 11/15/17 11:53am Do you have any special needs we should be aware of? No 11/15/17 11:53am Do you have a support person here with you today? Yes 11/15/17 11:53am Did patient receive Notice of Privacy Practices? Yes 11/15/17 11:53am Did patient receive patient rights and responsibilities? Yes 11/15/17 11:53am Problems Medical Problem Onset Date Status Abdominal pain Unknown Acute on chronic renal insufficiency Unknown CHF (congestive heart failure) Unknown Cardiomegaly Unknown Chest pain Unknown Congestive heart failure (CHF) Unknown Dyspnea Unknown Obesity Unknown Renal insufficiency Unknown Tachycardia Unknown Medications Current Home Medications Medication Dose Units Route Directions Days Qty Instructions Start Date Aspirin (Aspir 81) 81 Mg Tablet. 81 Mg Oral Bedtime Digoxin 125 Mcg Tablet 0.125 Mg Oral Daily 30 Tab Gabapentin 300 Mg Capsule 300 Mg Oral [...] Onset Date Status Hx Psychiatric Problems No 11/15/2017 6:34pm Not Applicable Not Applicable Hx Eating Disorder No 11/15/2017 6:34pm Not Applicable Not Applicable Hx Substance Use Disorder No 11/15/2017 6:34pm Not Applicable Not Applicable Hx Depression No 11/15/2017 6:34pm Not Applicable Not Applicable Hx Alcohol Use No 11/15/2017 6:34pm Not Applicable Not Applicable Hx Substance Use Treatment No 11/15/2017 6:34pm Not Applicable Not Applicable Hx Physical Abuse No 11/15/2017 6:34pm Not Applicable Not Applicable Smoking Status Start Date Stop Date Former smoker Hospital Discharge Instructions No hospital discharge instruction information available. Plan of Care Discharge Date 11/18/17 10:31am Disposition HOME, SELF-CARE Instructions/Education Provided Abdominal Pain - Adult Chest Pain - Chest Wall Heart Healthy Diet Prescriptions See Medication Section Referrals BAKARI MORENO MD (Cardiology) Order Date: 1 Day Entered Date: 11/18/2017 9:44am Address: [place] [id number] Additional Instructions/Education Cardiac diet Activity as tolerated Continue home medications except lisinopril and digoxin Restart digoxin lower lose on Follow up with burnisher and bumper in a day Follow up with PCP this week Functional Status Query Response Date Recorded Assistive Devices None November 15, 2017 6:36pm Ambulation Ability Independent November 15, 2017 6:36pm Toileting Ability Independent November 18, 2017 9:41am Allergies, Adverse Reactions, Alerts No known allergies. Immunizations No immunization information available. Vital Signs Acute Vital Signs Vital Response Date/Time Temperature (Fahrenheit) 96.1 degrees F (97.6 - 99.5) 11/18/2017 8:50am Pulse Pulse Rate (adult) 80 bpm (60 - 90) 11/18/2017 8:50am Respiratory Rate 20 bpm (12 - 24) 11/18/2017 8:50am Blood Pressure 164/77 mm Hg 11/18/2017 8:50am Height 9 ft 0 in 11/15/2017 5:13pm Weight 346.56 lb 11/18/2017 12:34am Body Mass Index 20.9 kg/m^2 11/18/2017 12:34am Results Laboratory Results Test Name Result Units Flags Reference Collection Date/Time Result Date/ Time Comments Urine Fine Granular Casts 1-5 H 0 11/02/2017 10:58am 11/02/2017 11: 25am Hemoglobin A1c Percent 9.3 % H 4.0-7.0 11/03/2017 1:10am 11/03/2017 1: 40am Uric Acid 13.3 mg/dL H 4.8-8.0 11/03/2017 1:10am 11/03/2017 1:40am Ammonia 41 UG/DL 31-123 11/02/2017 11:24am 11/02/2017 12:00pm Amylase Level 61 U/L 25-125 11/03/2017 1:10am 11/03/2017 1:40am Thyroid Stimulating Hormone (TSH) 3.181 uIU/mL 0.350-4.940 11/03/2017 1: 10am 11/03/2017 2:18am 25-Hydroxy Vitamin D Total 12 ng/mL L . 11/03/2017 1:10am 11/07/2017 9: 56pm Reference Range: All Ages: Target levels 30 - 100 25-Hydroxy Vitamin D3 11 ng/mL . 11/03/2017 1:10am 11/07/2017 9:56pm Performed at: [address] [id number] [place] Puller: Guanaco David MD, Phone: [phone] 25-Hydroxy Vitamin D2 <1.0 ng/mL . 11/03/2017 1:10am 11/07/2017 9:56pm White Blood Count 7.28 x10e3/uL 4.8-10.8 11/16/2017 5:4511/16/2017 7 :10am Red Blood Count 5.36 x10e6/uL 4.3-5.7 11/16/2017 5:4511/16/2017 7: 10am Hemoglobin 14.3 g/dL 14.0-18.0 11/16/2017 5:4511/16/2017 7:10am Hematocrit 44.8 % 38.2-49.6 11/16/2017 5:4511/16/2017 7:10am Mean Corpuscular Volume 83.6 fL 81-99 11/16/2017 5:4511/16/2017 7: 10am Mean Corpuscular Hemoglobin 26.7 pg L 28-32 11/16/2017 5:452017 7:10am Mean Corpuscular Hemoglobin Concent 31.9 g/dL 31-35 11/16/2017 5:4511/16/2017 7:10am Red Cell Distribution Width 14.2 % 11.7-14.4 11/16/2017 5:452017 7:10am Platelet Count 210 x10e3/uL 140-360 11/16/2017 5:4511/16/2017 7: 10am Neutrophils (%) (Auto) 53.8 % 38.7-80.0 11/16/2017 5:4511/16/2017 7: 10am Lymphocytes (%) (Auto) 33.9 % 18.0-39.1 11/16/2017 5:4511/16/2017 7: 10am Monocytes (%) (Auto) 10.0 % 4.4-11.3 11/16/2017 5:4511/16/2017 7: 10am Eosinophils (%) (Auto) 1.5 % 0.0-6.0 11/16/2017 5:4511/16/2017 7: 10am Basophils (%) (Auto) 0.5 % 0.0-1.0 11/16/2017 5:4511/16/2017 7:10am IM GRANULOCYTES % 0.3 % 0.0-1.0 11/16/2017 5:4511/16/2017 7:10am Neutrophils # (Auto) 3.9 2.1-6.9 11/16/2017 5:11/16/2017 7:10am Lymphocytes # (Auto) 2.5 1.0-3.2 11/16/2017 5:11/16/2017 7:10am Monocytes # (Auto) 0.7 0.2-0.8 11/16/2017 5:11/16/2017 7:10am Eosinophils # (Auto) 0.1 0.0-0.4 11/16/2017 5:11/16/2017 7:10am Basophils # (Auto) 0.0 0.0-0.1 11/16/2017 5:11/16/2017 7:10am Absolute Immature Granulocyte (auto 0.02 x10e3/uL 0-0.1 11/16/2017 5: 11/16/2017 7:10am Prothrombin Time 14.0 seconds 11.9-14.5 11/16/2017 5:4511/16/2017 6: 58am Prothromb Time International Ratio 1.17 11/16/2017 5:452017 6:58am Oral Anticoagulant Therapy INR Values: 1. Low Intensity Therapy 1.5 - 2.0 2. Moderate Intensity Therapy 2.0 - 3.0 3. High Intensity Therapy(1) 2.5 - 3.5 4. High Intensity Therapy(2) 3.0 - 4.0 5. Panic Value INR > 5.0 Activated Partial Thromboplast Time 26.9 seconds 23.8-35.5 11/16/2017 5: 45am 11/16/2017 6:58am Urine Color YELLOW YELLOW 11/15/2017 11:29am 11/15/2017 12:04pm Urine Clarity CLEAR CLEAR 11/15/2017 11:2911/15/2017 12:04pm Urine Specific [place] 1.015 1.010-1.025 11/15/2017 11:29am 2017 12:04pm Urine pH 5 5 - 7 11/15/2017 11:29am 11/15/2017 12:04pm Urine Leukocyte Esterase NEGATIVE NEGATIVE 11/15/2017 11:292017 12:04pm Urine Nitrite NEGATIVE NEGATIVE 11/15/2017 11:29am 11/15/2017 12: 04pm Urine Protein 2+ H NEGATIVE 11/15/2017 11:2911/15/2017 12:04pm Urine Glucose (UA) NEGATIVE NEGATIVE 11/15/2017 11:29am 11/15/2017 12 :04pm Urine Ketones NEGATIVE NEGATIVE 11/15/2017 11:29am 11/15/2017 12: 04pm Urine Urobilinogen 0.2 mg/dL 0.2 - 1 11/15/2017 11:29am 11/15/2017 12: 04pm Urine Bilirubin NEGATIVE NEGATIVE 11/15/2017 11:29am 11/15/2017 12: 04pm Urine Blood NEGATIVE NEGATIVE 11/15/2017 11:29am 11/15/2017 12:04pm Urine WBC 0-5 /HPF 0-5 11/15/2017 11:29am 11/15/2017 12:17pm Urine RBC NONE /HPF 0-5 11/15/2017 11:29am 11/15/2017 12:17pm Urine Bacteria NONE /HPF NONE 11/15/2017 11:2911/15/2017 12:17pm Urine Epithelial Cells RARE /LPF NONE 11/15/2017 11:29am 11/15/2017 12: 17pm Urine Hyaline Casts 2-5 H 0-1 11/15/2017 11:2911/15/2017 12:17pm Sodium Level 137 mmol/L 136-145 11/18/2017 7:00am 11/18/2017 8:06am Potassium Level 4.6 mmol/L 3.5-5.1 11/18/2017 7:00am 11/18/2017 8:06am Chloride Level 102 mmol/L 98-107 11/18/2017 7:00am 11/18/2017 8:06am Carbon Dioxide Level 25 mmol/L 22-29 11/18/2017 7:00am 11/18/2017 8: 06am Anion Gap 14.6 mmol/L 8-16 11/18/2017 7:00am 11/18/2017 8:06am Blood Urea Nitrogen 39 mg/dL H 7-11/18/2017 7:00am 11/18/2017 8:06am Creatinine 1.78 mg/dL H 0.72-1.25 11/18/2017 7:00am 11/18/2017 8:06am BUN/Creatinine Ratio 22 6-25 11/18/2017 7:00am 11/18/2017 8:06am Estimat Glomerular Filtration Rate 39 ML/MIN L 60- 11/18/2017 7:00am 09/2017 8:06am Ranges were taken from the National Kidney Disease Education Program and the National Kidney Foundation literature. Reference ranges: 60 or greater: Normal 16-59 (for 3 consecutive months): Chronic kidney disease 15 or less: Kidney failure Glucose Level 282 mg/dL H 74-118 11/18/2017 7:00am 11/18/2017 8:06am Calcium Level 9.1 mg/dL 8.4-10.2 11/18/2017 7:00am 11/18/2017 8:06am Bedside Glucose 255 mg/dL H 70-120 11/18/2017 7:24am 11/18/2017 7:44am Meter ID: [id number] Phosphorus Level 4.3 MG/DL 2.3-4.7 11/16/2017 5:45am 11/16/2017 6:50am Magnesium Level 1.2 MG/DL L 1.3-2.1 11/16/2017 5:45am 11/16/2017 6:50am Total Bilirubin 0.9 mg/dL 0.2-1.2 11/16/2017 5:45am 11/16/2017 6:50am Aspartate Amino Transf (AST/SGOT) 16 IU/L 5-34 11/16/2017 5:45am 2017 6:50am Alanine Aminotransferase (ALT/SGPT) 18 IU/L 0-55 11/16/2017 5:45 6:50am Total Protein 7.5 g/dL 6.5-8.1 11/16/2017 5:4511/16/2017 6:50am Albumin 3.4 g/dL L 3.5-5.0 11/16/2017 5:4511/16/2017 6:50am Globulin 4.1 g/dL H 2.3-3.5 11/16/2017 5:4511/16/2017 6:50am Albumin/Globulin Ratio 0.8 0.8-2.0 11/16/2017 5:4511/16/2017 6: 50am Alkaline Phosphatase 71 IU/L 40-150 11/16/2017 5:4511/16/2017 6: 50am Triglycerides Level 338 MG/DL H 0-149 11/16/2017 5:4511/16/2017 6: 50am Cholesterol Level 169 MD/DL 0-199 11/16/2017 5:4511/16/2017 6:50am Less than 200 mg/dL Low Risk 201 - 239 mg/dL Borderline Risk 240 mg/dl and greater High Risk LDL Cholesterol 71 MG/DL 60-130 11/16/2017 5:4511/16/2017 6:50am HDL Cholesterol 30 MG/DL L 40-60 11/16/2017 5:4511/16/2017 6:50am Cholesterol/HDL Ratio 5.6 H 3.9-4.7 11/16/2017 5:4511/16/2017 6: 50am B-Type Natriuretic Peptide 96.8 pg/mL 0-100 11/15/2017 11:2017 12:24pm Creatine Kinase 91 IU/L 30-200 11/16/2017 5:4511/16/2017 6:56am Creatine Kinase MB 1.40 ng/mL 0-5.0 11/16/2017 5:4511/16/2017 6: 53am Troponin I 0.020 ng/mL 0-0.300 11/16/2017 5:4511/16/2017 6:53am Lipase 38 U/L 8-78 11/15/2017 11:29am 11/15/2017 12:21pm Digoxin Level 2.11 ng/mL *H 0.8-2.0 11/18/2017 7:00am 11/18/2017 8:06am Results called to LAUREN HOLLOWAY RN at 0806 on 11/18/17 by Jatinder Marie. RB [place]. Microbiology Results Procedure Source Organism/Result Collection Date/Time Result Date/Time Result Status Blood Culture Blood NO GROWTH AFTER 5 DAYS, FINAL REPORT 11/02/2017 11: 24am 11/07/2017 11:33am Final Procedures Procedure Status Date Provider(s) CT of abdomen and pelvis without contrast Active 11/02/17 RACIEL CRANE Computed tomography of chest without contrast Active 11/02/17 RACIEL CRANE Ultrasound, renal Active 11/02/17 LIANNE VILLARREAL MD X-ray of chest, two views Active 11/15/17 KIMBER MOSES NP Computed tomography of abdomen without contrast Active 11/16/17 KANDIS DAVIS MD Ultrasound, renal Active 11/16/17 KANDIS DAVIS MD Encounters Encounter Location Arrival/Admit Date Discharge/Depart Date Attending Provider [facility]charged [facility] 11/16/17 1:44pm 11/18/17 10:31am MIRZA BARRY MD Discharged [facility]patient [facility] 11/02/17 1:18pm 11/06/17 9:43pm LIANNE VILLARREAL MD
[2017-12-23] MEDS ORDERED: SODIUM CHLORIDE 0.9% 1000ML 1,000 ML IV STA (12:57)
[2017-12-23] MEDS ORDERED: ADENOSINE 6 MG/2 ML VIAL IV ONE (13:00)
[2017-12-23] MEDS ORDERED: ONDANSETRON HCL 4 MG ORAL DISINTEGRATING TAB ONE (13:08)
[2017-12-23 13:10] LABS: BASOPHILS % 0.3 % (0.0-1.0); EOSINOPHILS # (AUTO) 0.1 (0.0-0.4); EOSINOPHILS % 1.1 % (0.0-6.0); HEMATOCRIT 49.4 % (38.2-49.6); HEMOGLOBIN 16.6 g/dL (14.0-18.0); LYMPHOCYTES # (AUTO) 2.9 (1.0-3.2); LYMPHOCYTES % 24.5 % (18.0-39.1); MEAN CORPUSCULAR HEMOGLOBIN 26.7 pg (28-32); MEAN CORPUSCULAR HGB CONC 33.6 g/dL (31-35); MEAN CORPUSCULAR VOLUME 79.5 fL (81-99); MONOCYTES # (AUTO) 0.8 (0.2-0.8); NEUTROPHILS # (AUTO) 7.8 (2.1-6.9); NEUTROPHILS % 66.8 % (38.7-80.0); PLATELET COUNT 246 x10e3/uL (140-360); RED BLOOD COUNT 6.21 x10e6/uL (4.3-5.7); RED CELL DISTRIBUTION WIDTH 13.9 % (11.7-14.4)
[2017-12-23] MEDS ORDERED: ONDANSETRON HCL 4 MG ORAL DISINTEGRATING TAB PO ONE (13:15)
[2017-12-23] MEDS ORDERED: DILTIAZEM HCL IV 5MG/ML 25 ML VIAL ONE (13:18)
[2017-12-23] MEDS ORDERED: DILTIAZEM HCL VIAL 5 ML ONE (13:18)
[2017-12-23 13:22] LABS: INR 1.18; PROTHROMBIN TIME 14.1 seconds (11.9-14.5)
[2017-12-23 13:23] LABS: PARTIAL THROMBOPLASTIN TIME 25.9 seconds (23.8-35.5)
[2017-12-23 13:30] LABS: ALBUMIN 3.5 g/dL (3.5-5.0); ALBUMIN/GLOBULIN RATIO 0.7 (0.8-2.0); ANION GAP 21.9 mmol/L (8-16); CALCIUM 9.9 mg/dL (8.4-10.2); CREATININE, SERUM 3.27 mg/dL (0.72-1.25); POTASSIUM 4.9 mmol/L (3.5-5.1)
[2017-12-23] MEDS ORDERED: DILTIAZEM HCL 100 ML IV SCH (13:30)
[2017-12-23] MEDS ORDERED: DILTIAZEM HCL 5 MG/ML 5 ML VIAL IV ONE (13:30)
[2017-12-23] MEDS: DILTIAZEM HCL IV SOLN 125 MG in DEXTROSE 5% 100ML 100 ML IV PRN (13:43)
[2017-12-23 13:49] LABS: CREATINE KINASE MB 4.6 ng/mL (0-5.0); THYROID STIMULATING HORMONE 4.328 uIU/mL (0.350-4.940)
[2017-12-23] MEDS ORDERED: ELIQUIS PO (13:51)
[2017-12-23] MEDS ORDERED: LISINOPRIL2.5 MG PO (13:51)
[2017-12-23] MEDS ORDERED: DIGOXIN125 MCG PO (13:51)
[2017-12-23] MEDS ORDERED: METFORMIN HCL500 M2 PO (13:51)
[2017-12-23] MEDS ORDERED: ATORVASTATIN CA20 MG PO (13:51)
[2017-12-23] MEDS ORDERED: BUMETANIDE1 MG PO (13:51)
[2017-12-23] MEDS ORDERED: METOPROLOL TART25 MG PO (13:51)
[2017-12-23] MEDS ORDERED: INSULIN REGULAR, HUMAN 100 UNIT/1 ML 3ML VIAL SQ ONE (14:00)
--- NOTE | 2017-12-23 14:40 | Diagnostic Imaging Report ---
PROCEDURE: A single AP view of the chest. COMPARISON: 11/15/17 INDICATIONS: SHORTNESS OF BREATH FINDINGS: Lines/tubes: None. Lungs: Limited by body habitus. The lungs are well inflated and clear. There is no evidence of pneumonia or pulmonary edema. Pleura: There is no pleural effusion or pneumothorax. Heart and mediastinum: The heart and the mediastinum are unremarkable. Bones: No acute bony abnormality. IMPRESSION: 1. No acute cardiopulmonary disease. Dictated by: Chapin Hinkle M.D. on 12/23/2017 at 14:42 Electronically approved by: Chapin Hinkle M.D. on 12/23/2017 at 14:42
[2017-12-23] MEDS ORDERED: ASPIRIN 81 MG CHEW TAB PO ONE (15:15)
[2017-12-23 22:42] LABS: CREATINE KINASE MB 3.9 ng/mL (0-5.0)
[2017-12-23 22:44] VITALS: BP 135/85
[2017-12-23 22:46] VITALS: BP 149/69
[2017-12-23 23:00] VITALS: BP 162/83
[2017-12-23 23:15] VITALS: BP 113/84
[2017-12-23 23:30] VITALS: BP 129/86
[2017-12-23 23:45] VITALS: BP 117/81
[2017-12-24] VITALS (52 sets, daily range): BP systolic 93–144; BP diastolic 51–103
[2017-12-24 06:17] LABS: BASOPHILS % 0.4 % (0.0-1.0); EOSINOPHILS # (AUTO) 0.1 (0.0-0.4); HEMATOCRIT 47.7 % (38.2-49.6); HEMOGLOBIN 15.5 g/dL (14.0-18.0); LYMPHOCYTES # (AUTO) 3.5 (1.0-3.2); LYMPHOCYTES % 36.5 % (18.0-39.1); MEAN CORPUSCULAR HGB CONC 32.5 g/dL (31-35); MEAN CORPUSCULAR VOLUME 83.1 fL (81-99); MONOCYTES # (AUTO) 0.8 (0.2-0.8); MONOCYTES % 8.4 % (4.4-11.3); NEUTROPHILS # (AUTO) 5.1 (2.1-6.9); NEUTROPHILS % 53.3 % (38.7-80.0); PLATELET COUNT 169 x10e3/uL (140-360); RED BLOOD COUNT 5.74 x10e6/uL (4.3-5.7); RED CELL DISTRIBUTION WIDTH 14.2 % (11.7-14.4)
--- NOTE | 2017-12-24 06:34 | Diagnostic Imaging Report ---
CHEST SINGLE (PORTABLE), 12/24/2017 3:15 PM Technique: CHEST SINGLE (PORTABLE) Comparison: 11/03/2017 Clinical history: Chest pain Findings: Limited by portable technique and body habitus. Impression: 1. Stable mildly enlarged cardiomediastinal silhouette 2. Mild bibasilar vascular crowding/atelectasis. No effusion or pneumothorax. Signed by: Dr Naina Cheatham MD on 12/24/2017 6:31 AM
[2017-12-24 06:43] LABS: ALANINE AMINOTRANSFERASE 18 IU/L (0-55); ALBUMIN 3.4 g/dL (3.5-5.0); ALBUMIN/GLOBULIN RATIO 0.8 (0.8-2.0); ALKALINE PHOSPHATASE 87 IU/L (40-150); ANION GAP 19.7 mmol/L (8-16); BLOOD UREA NITROGEN 54 mg/dL (7-26); BUN/CREATININE RATIO 21 (6-25); CALCIUM 9.6 mg/dL (8.4-10.2); CARBON DIOXIDE 20 mmol/L (22-29); CHLORIDE 101 mmol/L (98-107); CHOL/HDL RATIO 7.1 (3.9-4.7); CHOLESTEROL 205 MD/DL (0-199); CREATINE KINASE 91 IU/L (30-200); CREATININE, SERUM 2.53 mg/dL (0.72-1.25); EST GLOMERULAR FILTRATION RATE 26 ML/MIN (60-); GLUCOSE 219 mg/dL (74-118); HDL CHOLESTEROL 29 MG/DL (40-60); POTASSIUM 3.7 mmol/L (3.5-5.1); SODIUM 137 mmol/L (136-145); TRIGLYCERIDES 561 MG/DL (0-149)
--- NOTE | 2017-12-24 09:06 | Diagnostic Imaging Report ---
PROCEDURE:ABDOMEN-1VIEW (KUB) TECHNIQUE:Supine AP abdomen on 2 radiographs INDICATION:Abdominal pain COMPARISON:Patients [facility], CT, CT ABDOMEN WO, 11/16/2017, 13:11. FINDINGS: See conclusion. CONCLUSION: 1. Normal bowel gas pattern. 2. No evidence of organomegaly or ascites. 3. No irregular calcifications. 4. Intact skeleton. Dictated by: Papito Long M.D. on 12/24/2017 at 9:08 Electronically approved by: Papito Long M.D. on 12/24/2017 at 9:08
[2017-12-24] MEDS: METOPROLOL TARTRATE 50 MG TAB PO SCH ×2 (09:28→17:27)
[2017-12-24] MEDS: PANTOPRAZOLE SOD 40 MG TABEC PO SCH (09:28)
[2017-12-24] MEDS: ASPIRIN 81 MG ENTERIC COATED PO SCH (09:28)
[2017-12-24] MEDS: APIXAB 2.5 MG TABLET PO SCH ×2 (09:28→17:26)
[2017-12-24] MEDS: SENNA-S TABLET PO SCH ×2 (09:30→17:27)
--- NOTE | 2017-12-24 09:36 | Consultation ---
DATE OF CONSULTATION: December 23, 2017 CARDIOLOGY CONSULTATION REQUESTING PHYSICIAN: Dr. John Prasad REASON FOR CONSULTATION: AFib, A-flutter. HPI: This is a 57-year-old, morbidly obese male that presented with abdominal pain. According to the patient, for the last 2 to 3 days, he has been having abdominal pain, nausea, vomiting, lack of appetite. He also stated that he has been having episodes of dizziness. When he gets out of the bed and tries to walk around, he feels dizzy and has to go back to bed. He has a history of CAD with recent cardiac catheterization. He was discharged home with a LifeVest. He also was recently admitted with digoxin toxicity, and he got better and was discharged home. He did a followup in the clinic with Dr. Tanvir Dee, who found that he had an ejection fraction that got better to 50%, and the LifeVest was discontinued. His troponin was negative. EKG showed AFib and A-flutter, and he was transferred to ICU on a Cardizem drip. PAST MEDICAL HISTORY: Diabetes, obesity, obstructive sleep apnea, hypertension, hyperlipidemia, DVT to right leg, systolic CHF, CKD, AFib, pneumonia, nonischemic cardiomyopathy. PAST SURGICAL HISTORY: Recent cardiac catheterization with medical management. FAMILY HISTORY: Positive for hypertension, diabetes and DVT. SOCIAL HISTORY: No smoking. No drinking. He lives at home with the . MEDICATIONS: See med list. ALLERGIES: NOT ALLERGIC TO ANY MEDICATION. REVIEW OF SYSTEMS: Negative except those mentioned above. PHYSICAL EXAMINATION VITAL SIGNS: Temperature 98, heart rate 93, blood pressure 144/74, respirations 18, oxygen saturation 98% on room air. GENERAL: He is awake, alert and oriented times 3. HEENT: Mucous membranes moist. NECK: Supple. LUNGS: Bilaterally clear to auscultation. CARDIOVASCULAR: Irregular. ABDOMEN: Soft with complaint of pain. NEUROLOGIC: Intact. EXTREMITIES: No edema. LABS: Sodium 137, potassium 3.7, chloride 101, CO2 20, BUN 54, creatinine 2.53. Glucose 219. White blood cells 9.54, hemoglobin 15.5, hematocrit 47.7, platelets 169. PT 14.1, PTT 25.9, INR 1.18. IMPRESSION 1. Atrial fibrillation, atrial flutter. 2. Abdominal pain. 3. Nausea and vomiting. 4. Diabetes. 5. Chronic kidney disease. 6. Coronary artery disease. 7. Hypertension. ASSESSMENT AND PLAN: He recently had an echo done in the clinic on the 05 of December that showed ejection fraction 50%. Will go ahead and check his digoxin level. He may need a GI consult. We will go ahead and check KUB. Resume his home medications. Due to the kidney function, we will go ahead and discontinue digoxin and increase his beta liz. Further cardiac workup pending clinical course. Thank you for this consultation. Dictated by Maryam Matute NP. Job#: [id number]
[2017-12-24] MEDS ORDERED: DIATRIZOATE MEGL/DIATRIZOA SOD 30 ML BTL PO ONE (09:44)
--- NOTE | 2017-12-24 10:05 | History and Physical ---
CHIEF COMPLAINT: Atrial flutter. HISTORY OF PRESENT ILLNESS: Patient is a 57-year-old male with extensive cardiac disease. Patient has cardiomyopathy. The ejection fraction is improved, however. The patient has baseline atrial flutter. He had nonischemic cardiomyopathy associated with congestive heart failure. Patient came in with heart rate 150 to 160. Patient was started on a Cardizem drip. PAST MEDICAL HISTORY: Nonischemic cardiomyopathy and congestive heart failure, which is compensated. Atrial flutter and atrial fibrillation. History of hypertension, morbid obesity, obstructive sleep apnea, chronic kidney disease stage 3, uncontrolled diabetes type 2, hyperlipidemia. PAST SURGICAL HISTORY: Noncontributory. SOCIAL HISTORY: Patient does not smoke or use alcohol. No recreational drugs. ALLERGIES: NO KNOWN ALLERGIES. HOME MEDICATIONS: List reviewed. REVIEW OF SYSTEMS: Diarrhea associated with constipation and chronic abdominal pain. PHYSICAL EXAMINATION VITAL SIGNS: Temperature is 98. Blood pressure is 141/87. Pulse rate 156 on admission. Respiratory rate 18. GENERAL: The patient is in no acute distress. HEENT: Normocephalic, atraumatic, anicteric. NECK: Supple grossly. PULMONARY: Diminished breath sounds. CARDIOVASCULAR: Atrial flutter, atrial fibrillation. ABDOMEN: Soft, obese. EXTREMITIES: No gross cyanosis or edema. NEUROLOGIC: No focal deficit. LABORATORY: Reviewed. BUN and creatinine are 54 and 2.53 respectively. Sodium is 137. Potassium 3.7. Glucose is 219. Digoxin 0.89. IMPRESSION 1. Atrial flutter/atrial fibrillation. 2. Chronic abdominal pain. PLAN: CT abdomen and pelvis without contrast. Continue with cardiac care. Rate control medication. Stool softener. Job#: [id number]
--- NOTE | 2017-12-24 11:31 | Diagnostic Imaging Report ---
PROCEDURE: CT ABDOMEN AND PELVIS WITHOUT CONTRAST COMPARISON:[facility], CT, CT CHEST WO, 11/02/2017, 13:20. [facility], CT, CT ABDOMEN/PELVIS WO, 11/02/2017, 13:20. INDICATIONS:Abdominal pain. TECHNIQUE: Routine protocol Volumetric CT abdomen and pelvis. No intravenous contrast. Positive enteric contrast. Multiplanar reformatted images. DLP: 846.02 FINDINGS: 0.8 cm solid, smooth margin right lower lobe pulmonary nodule (image one, series 2). Left lower lobe calcified granuloma. Lung bases otherwise clear. No pleural effusions. Normal heart size. Liver: Enlarged, with a craniocaudal span of 21 cm. Normal attenuation. Gallbladder: Normal. No other dilatation. Pancreas: Normal Spleen: Normal Adrenal glands: Normal Kidneys: Absent right kidney. Nonspecific left perinephric fat stranding without hydronephrosis. Urinary bladder: Normal Prostate and seminal vesicles: Stable prominent left seminal vesicle. Bowel: Normal caliber. Normal appendix. 2 continued fluid overload Vasculature: Scattered uja-zpqs-nsyeaxee atherosclerosis. Lymph nodes: Normal Skeleton: Intact. Multilevel degenerative disc disease. Soft tissues: Normal CONCLUSION: 1. Stable hepatomegaly. 2. Stable nonspecific fat stranding about the left kidney. Correlate for urinary tract infection. 3. Otherwise, no acute abnormality or other conspicuous etiology for abdominal pain. 4. Stable 8mm right lower lobe pulmonary nodule. Followup CT chest in 3-6 months. Dictated by: Papito Long M.D. on 12/24/2017 at 11:32 Electronically approved by: Papito Long M.D. on 12/24/2017 at 11:32
[2017-12-24] MEDS: DILTIAZEM HCL IV SOLN 125 MG in DEXTROSE 5% 100ML 100 ML IV PRN (13:19)
[2017-12-24] MEDS ORDERED: DEXTROSE 50% SYRINGE 50 ML IV PRN (16:30)
[2017-12-24] MEDS: INSULIN LISPRO 100 UNIT/1 ML 3ML VIAL SQ SCH ×2 (17:00→21:20)
[2017-12-24] MEDS: ATORVASTATIN 40 MG TAB PO SCH (21:20)
[2017-12-25] VITALS (26 sets, daily range): BP systolic 97–148; BP diastolic 56–87
[2017-12-25 08:14] LABS: CLARITY,URINE CLEAR (CLEAR); COLOR,URINE YELLOW (YELLOW)
[2017-12-25 08:15] LABS: BILIRUBIN,URINE NEGATIVE (NEGATIVE); KETONES,URINE NEGATIVE (NEGATIVE); LEUKOCYTE ESTERASE ,URINE NEGATIVE (NEGATIVE); NITRITE,URINE NEGATIVE (NEGATIVE); PROTEIN,URINE DIPSTICK 2+ (NEGATIVE); URINE UROBILINOGEN 0.2 mg/dL (0.2 - 1)
[2017-12-25 08:23] LABS: BACTERIA,URINE FEW /HPF; EPITHELIAL CELLS,URINE RARE /LPF; RBC,URINE 0-5 /HPF (0-5); WBC,URINE (MAN) 0-5 /HPF (0-5)
[2017-12-25] MEDS: ASPIRIN 81 MG ENTERIC COATED PO SCH (08:37)
[2017-12-25] MEDS: APIXAB 2.5 MG TABLET PO SCH ×2 (08:37→16:46)
[2017-12-25] MEDS: SENNA-S TABLET PO SCH ×2 (08:38→16:47)
[2017-12-25] MEDS: PANTOPRAZOLE SOD 40 MG TABEC PO SCH (08:38)
[2017-12-25] MEDS: METOPROLOL TARTRATE 50 MG TAB PO SCH ×3 (08:38→16:47)
[2017-12-25] MEDS: INSULIN LISPRO 100 UNIT/1 ML 3ML VIAL SQ SCH ×4 (08:57→20:27)
[2017-12-25] MEDS: ATORVASTATIN 40 MG TAB PO SCH (20:26)
[2017-12-26] VITALS (10 sets, daily range): BP systolic 101–143; BP diastolic 53–84
[2017-12-26 07:28] LABS: ALBUMIN 3.1 g/dL (3.5-5.0); ALBUMIN/GLOBULIN RATIO 0.8 (0.8-2.0); ANION GAP 14.4 mmol/L (8-16); CALCIUM 9.6 mg/dL (8.4-10.2); CREATININE, SERUM 1.93 mg/dL (0.72-1.25); POTASSIUM 4.4 mmol/L (3.5-5.1)
[2017-12-26] MEDS: PANTOPRAZOLE SOD 40 MG TABEC PO SCH (08:05)
[2017-12-26] MEDS: SENNA-S TABLET PO SCH ×2 (08:05→17:19)
[2017-12-26] MEDS: APIXAB 2.5 MG TABLET PO SCH ×2 (08:05→17:19)
[2017-12-26] MEDS: INSULIN LISPRO 100 UNIT/1 ML 3ML VIAL SQ SCH ×4 (08:05→20:40)
[2017-12-26] MEDS: METOPROLOL TARTRATE 50 MG TAB PO SCH ×2 (08:05→17:19)
[2017-12-26] MEDS: ATORVASTATIN 40 MG TAB PO SCH (20:30)
[2017-12-27] VITALS: BP 120/62
[2017-12-27 05:40] VITALS: BP 119/77
[2017-12-27] MEDS: METOPROLOL TARTRATE 50 MG TAB PO SCH (08:08)
[2017-12-27] MEDS: PANTOPRAZOLE SOD 40 MG TABEC PO SCH (08:08)
[2017-12-27] MEDS: APIXAB 2.5 MG TABLET PO SCH (08:08)
[2017-12-27] MEDS: SENNA-S TABLET PO SCH (08:08)
[2017-12-27] MEDS: INSULIN LISPRO 100 UNIT/1 ML 3ML VIAL SQ SCH (08:09)
[2017-12-27 08:13] VITALS: BP 151/77
--- NOTE | 2017-12-27 09:14 | Discharge Summary ---
PRIMARY CARE PHYSICIAN: Dr. Albert Castrejon CONSULTANTS: Dr. Jean Brown FINAL DIAGNOSES 1. Atrial flutter/atrial fibrillation. 2. Acute kidney injury on chronic kidney disease. 3. Morbid obesity. 4. Abdominal pain secondary to constipation alternating with diarrhea. 5. Nonischemic cardiomyopathy, baseline. SUMMARY: Patient is a 57-year-old male who came in with increasing shortness of breath and increasing palpitations with atrial flutter. Heart rate in the 130-150. The patient required admission to the ICU for IV Cardizem. The patient was placed on IV Cardizem and subsequently titrated to a beta liz. He was taking Lopressor 25 mg twice a day at home. His lopressor now is 75 mg twice a day. Heart rate in the 68-80. He is on Eliquis. Blood pressure remained in the 150-160. Nifedipine XL 30 mg once a day added. Patient will stop his Bumex and start on Lasix 40 mg once a day. He was dehydrated because he was having abdominal pain with constipation alternating with diarrhea. Since admission, the patient received Senna-S 1 tablet twice a day and he is doing well. He had regular bowel movement. No abdominal pain. At this time, he is stable. He is comfortable and he will go home today. He is to follow instructions for his home medications. It is very important that he will follow the recommendations as follows. He will continue with Lipitor 40 mg at night. Omeprazole 40 mg daily. Eliquis 2.5 mg b.i.d. The patient will stop aspirin, Bumex, digoxin, lisinopril, metformin, and metoprolol tartrate 25 mg. New prescriptions are: 1. Metoprolol tartrate 75 mg twice a day. 2. Senna-S 1 tablet b.i.d. 3. Nifedipine XL 30 mg daily. 4. Tylenol No. 3 one q.6 h. as needed for pain. 5. Glucotrol XL 5 mg q.a.m. 6. Lasix 40 mg daily. Patient is stable and discharged home. Follow up with Dr. Brown next week and follow up with Dr. Albert Castrejon next week as well. The patient will need repeated blood work. Diet will be ADA 1800 calorie diet. Job#: [id number] RI
== END 2017-12-27 10:23 | disposition home or self-care (01) | DRG 309 ==
LOC: ER 12:42 → ERHOLD 15:41 → EDBEDREQ 21:11 → ICU 22:23 → MED/SURG 12-25 12:02
PROVIDERS: ADMIT Internal Medicine; ATTEND Internal Medicine
DX: I48.92 Unspecified atrial flutter (principal); I13.0 Hypertensive heart and chronic kidney disease with heart failure and stage 1 through stage 4 chronic kidney disease, or unspecified chronic kidney disease; I50.22 Chronic systolic (congestive) heart failure; N17.9 Acute kidney failure, unspecified; I48.2 Chronic atrial fibrillation; Z79.01 Long term (current) use of anticoagulants; N18.3 Chronic kidney disease, stage 3 (moderate); E11.22 Type 2 diabetes mellitus with diabetic chronic kidney disease; E11.65 Type 2 diabetes mellitus with hyperglycemia; Z79.84 Long term (current) use of oral hypoglycemic drugs; I25.10 Atherosclerotic heart disease of native coronary artery without angina pectoris; E78.5 Hyperlipidemia, unspecified; E86.0 Dehydration; G47.33 Obstructive sleep apnea (adult) (pediatric); K59.00 Constipation, unspecified; R19.7 Diarrhea, unspecified
CPT/HCPCS: 36415; 71045; 74018; 74176; 80053; 80061; 80162; 81001; 82550; 82553; 82948; 83690; 83880; 84443; 84484; 85025; 85610; 85730; 93005; 93880; 96372; 99284; J0153; J7030

== ENCOUNTER 2018-02-14 09:33 | Emergency (ER) | payer OTHER ==
[~2018-02-14] VITALS: Ht 190.5 cm; Wt 143.8 kg
[~2018-02-14 09:33] MED LIST changes: +ATORVASTATIN CA20 MG PO; +BUMETANIDE1 MG PO; +ELIQUIS PO; +LISINOPRIL2.5 MG PO; +METFORMIN HCL500 M2 PO; +METOPROLOL TART25 MG PO
[2018-02-14] MEDS ORDERED: ONDANSETRON HCL INJ 2 MG/ML VIAL IV STA (10:14)
[2018-02-14] MEDS ORDERED: MORPHINE SULFATE INJ 4 MG/ML INJ IV STA (10:14)
[2018-02-14] MEDS ORDERED: ASPIRIN 81 MG CHEW TAB PO ONE (10:15)
[2018-02-14 10:37] LABS: BASOPHILS % 0.2 % (0.0-1.0); EOSINOPHILS # (AUTO) 0.2 (0.0-0.4); EOSINOPHILS % 1.9 % (0.0-6.0); HEMOGLOBIN 13.3 g/dL (14.0-18.0); LYMPHOCYTES # (AUTO) 1.9 (1.0-3.2); LYMPHOCYTES % 20.1 % (18.0-39.1); MEAN CORPUSCULAR HEMOGLOBIN 27.5 pg (28-32); MEAN CORPUSCULAR HGB CONC 34.1 g/dL (31-35); MEAN CORPUSCULAR VOLUME 80.6 fL (81-99); MONOCYTES # (AUTO) 0.7 (0.2-0.8); MONOCYTES % 7.5 % (4.4-11.3); NEUTROPHILS # (AUTO) 6.7 (2.1-6.9); NEUTROPHILS % 69.9 % (38.7-80.0); PLATELET COUNT 256 x10e3/uL (140-360); RED BLOOD COUNT 4.84 x10e6/uL (4.3-5.7); RED CELL DISTRIBUTION WIDTH 14.6 % (11.7-14.4)
[2018-02-14 10:49] LABS: INR 1.19; PROTHROMBIN TIME 14.2 seconds (11.9-14.5)
[2018-02-14 10:50] LABS: PARTIAL THROMBOPLASTIN TIME 28.1 seconds (23.8-35.5)
--- NOTE | 2018-02-14 10:51 | Diagnostic Imaging Report ---
PROCEDURE: CHEST SINGLE (PORTABLE) COMPARISON: 12/24/2017. INDICATIONS: SHORTNESS OF BREATH FINDINGS: The lungs are well-inflated. No focal airspace consolidation, pleural effusion, or pneumothorax. Stable cardiomediastinal contour with mild tortuosity of the thoracic aorta. No overt pulmonary edema. No acute osseous abnormality. CONCLUSION: No acute cardiopulmonary abnormality. Dictated by: Tanvir Austin M.D. on 02/14/2018 at 10:56 Electronically approved by: Tanvir Austin M.D. on 02/14/2018 at 10:56
[2018-02-14 10:58] LABS: ALANINE AMINOTRANSFERASE 17 IU/L (0-55); ALBUMIN 3.1 g/dL (3.5-5.0); ALBUMIN/GLOBULIN RATIO 0.6 (0.8-2.0); ALKALINE PHOSPHATASE 107 IU/L (40-150); ANION GAP 17.1 mmol/L (8-16); BLOOD UREA NITROGEN 38 mg/dL (7-26); BUN/CREATININE RATIO 23 (6-25); CARBON DIOXIDE 20 mmol/L (22-29); CHLORIDE 100 mmol/L (98-107); CREATINE KINASE 76 IU/L (30-200); CREATININE, SERUM 1.68 mg/dL (0.72-1.25); EST GLOMERULAR FILTRATION RATE 42 ML/MIN (60-); GLUCOSE 322 mg/dL (74-118); POTASSIUM 4.1 mmol/L (3.5-5.1); SODIUM 133 mmol/L (136-145)
[2018-02-14] MEDS ORDERED: BUPIVACAINE HCL 0.5% INJ 30 ML VIAL INJ ONE (11:45)
[2018-02-14] MEDS ORDERED: TRIAMCINOLONE ACET 40 MG/ML VIAL IM ONE (11:45)
[2018-02-14] MEDS ORDERED: METOPROLOL TART50 MG PO (16:37)
[2018-02-14] MEDS ORDERED: GLIPIZIDE ER5 MG PO (16:37)
[2018-02-14] MEDS ORDERED: HYDROCHLOROTHIA25 MG PO (16:37)
[2018-02-14] MEDS ORDERED: NIFEDIPINE ER30 M1 PO (16:37)
[2018-02-14] MEDS ORDERED: FUROSEMIDE40 MG PO (16:37)
[2018-02-14] MEDS ORDERED: DOCUSATE CALCI240 MG PO (16:37)
[2018-02-14] MEDS ORDERED: LANTUS 3ML100 UNITS/ SQ (16:39)
--- NOTE | 2018-02-14 20:10 | Diagnostic Imaging Report ---
EXAM: VENTILATION PERFUSION LUNG SCAN INDICATION: Shortness of breath COMPARISON: Chest radiograph12/24/2017 DISCUSSION: Xenon-133 gas 8 mCi was administered via inhalation. Dynamic images of the lungs in the posterior projection were obtained through single breath and washout phases. Distribution of tracer activity is mildly irregular throughout the lungs. Washout is diffusely delayed with no evidence of air trapping. Perfusion images of the lungs in multiple projections were obtained following intravenous administration of 6 mCi of Tc-99m MAA. Distribution of tracer is minimally irregular throughout the lungs. There are no segmental perfusion defects of any size. The contours of the lungs are well demarcated. The cardiac silhouette is normal. IMPRESSION: 1. Scan findings represent a LOW probability for acute pulmonary embolic disease based on the PIOPED II criteria. 2. Scan findings are compatible with diffuse parenchymal and/or obstructive lung disease. Signed by: Dr. Leigh Gaytan M.D. on 02/17/2018 7:54 AM
[2018-02-14 20:41] VITALS: BP 155/78
== END 2018-02-14 20:49 | disposition home or self-care (01) ==
LOC: ER 09:33
DX: R06.09 Other forms of dyspnea (principal); R42 Dizziness and giddiness; M25.512 Pain in left shoulder; M1A.31 Chronic gout due to renal impairment, shoulder; M1A.3620 Chronic gout due to renal impairment, left knee, without tophus (tophi)
CPT/HCPCS: 36415; 71045; 78582; 80053; 82550; 82553; 82948; 83880; 84484; 84550; 85025; 85379; 85610; 85730; 93005; 99284; A9540; A9558; J2270; J2405; J3301

== ENCOUNTER 2022-04-18 09:28 | Inpatient (IN) | payer MEDICARE, OTHER ==
[~2022-04-18] VITALS: Ht 190.5 cm; Wt 149.7 kg
[~2022-04-18 09:28] MED LIST changes: +DOCUSATE CALCI240 MG PO; +FUROSEMIDE40 MG PO; +GLIPIZIDE ER5 MG PO; +LANTUS 3ML100 UNITS/ SQ; +METOPROLOL TART50 MG PO; +NIFEDIPINE ER30 M1 PO
[2022-04-18] MEDS ORDERED: KETOROLAC TROMETHAMINE 30 MG/ML VIAL IV STA (09:38)
[2022-04-18] MEDS ORDERED: CYCLOBENZAPRINE HCL 10 MG TAB PO ONE (10:00)
[2022-04-18] MEDS ORDERED: HYDROCODONE/APAP 5MG-325MG TAB PO ONE (11:15)
[2022-04-18 13:09] LABS: ANION GAP 14.2 mmol/L (8-16); CALCIUM 8.6 mg/dL (8.4-10.2); CREATININE, SERUM 1.57 mg/dL (0.72-1.25); POTASSIUM 4.2 mmol/L (3.5-5.1)
[2022-04-18 13:44] LABS: BASOPHILS % 0.2 % (0.0-1.0); EOSINOPHILS # (AUTO) 0.1 (0.0-0.4); EOSINOPHILS % 0.6 % (0.0-6.0); HEMATOCRIT 43.4 % (38.2-49.6); HEMOGLOBIN 14.1 g/dL (14.0-18.0); LYMPHOCYTES # (AUTO) 1.5 (1.0-3.2); LYMPHOCYTES % 16.5 % (18.0-39.1); MEAN CORPUSCULAR HEMOGLOBIN 28.3 pg (28-32); MEAN CORPUSCULAR HGB CONC 32.5 g/dL (31-35); MEAN CORPUSCULAR VOLUME 87.1 fL (81-99); MONOCYTES # (AUTO) 0.7 (0.2-0.8); MONOCYTES % 7.2 % (4.4-11.3); NEUTROPHILS % 75.2 % (38.7-80.0); PLATELET COUNT 211 x10e3/uL (140-360); RED BLOOD COUNT 4.98 x10e6/uL (4.3-5.7); RED CELL DISTRIBUTION WIDTH 13.3 % (11.7-14.4)
[2022-04-18] MEDS ORDERED: IBUPROFEN 600 MG TAB PO PRN (14:15)
[2022-04-18 18:06] VITALS: BP 178/83
[2022-04-18] MEDS: ONDANSETRON HCL INJ 2MG/ML 2ML 2 MG/ML VIAL IV PRN (18:15)
[2022-04-18] MEDS: Morphine 4mg INJECTION 4 MG/ML INJ IV PRN ×2 (18:15→22:12)
[2022-04-18] MEDS ORDERED: NEURONTIN300 MG PO (18:25)
[2022-04-18] MEDS ORDERED: CLONIDINE HCL0.2 MG PO (18:25)
[2022-04-18] MEDS ORDERED: ASPIRIN EC81 MG PO (18:28)
[2022-04-18] MEDS ORDERED: TRICOR145 MG PO (18:28)
[2022-04-18] MEDS ORDERED: ALLOPURINOL100 MG PO (18:28)
[2022-04-18] MEDS ORDERED: [UNRECOGNIZED DRUG - OTHER] SQ (18:33)
[2022-04-18] MEDS ORDERED: NOVOLOG100 UNIT/1 SC (18:33)
[2022-04-18] MEDS: HYDROCODONE/APAP 5MG-325MG TAB PO PRN (18:44)
[2022-04-18 20:00] VITALS: BP 148/69
[2022-04-18 20:52] VITALS: BP 148/69
[2022-04-18] MEDS ORDERED: DEXTROSE 50% SYRINGE 50 ML IV PRN (22:45)
[2022-04-19] VITALS (8 sets, daily range): BP systolic 131–174; BP diastolic 63–96
[2022-04-19] MEDS ORDERED: DEXTROSE 50% SYRINGE 50 ML IV PRN ×2 (00:15→08:15)
[2022-04-19] MEDS: HYDROCODONE/APAP 5MG-325MG TAB PO PRN (02:46)
[2022-04-19 05:56] LABS: BASOPHILS % 0.3 % (0.0-1.0); EOSINOPHILS % 0.6 % (0.0-6.0); HEMATOCRIT 42.6 % (38.2-49.6); HEMOGLOBIN 14.2 g/dL (14.0-18.0); LYMPHOCYTES # (AUTO) 1.2 (1.0-3.2); LYMPHOCYTES % 18.6 % (18.0-39.1); MEAN CORPUSCULAR HEMOGLOBIN 28.3 pg (28-32); MEAN CORPUSCULAR HGB CONC 33.3 g/dL (31-35); MEAN CORPUSCULAR VOLUME 84.9 fL (81-99); MONOCYTES # (AUTO) 0.5 (0.2-0.8); MONOCYTES % 8.1 % (4.4-11.3); NEUTROPHILS # (AUTO) 4.6 (2.1-6.9); NEUTROPHILS % 71.5 % (38.7-80.0); PLATELET COUNT 186 x10e3/uL (140-360); RED BLOOD COUNT 5.02 x10e6/uL (4.3-5.7); RED CELL DISTRIBUTION WIDTH 13.4 % (11.7-14.4)
[2022-04-19 06:18] LABS: ANION GAP 15.5 mmol/L (8-16); CALCIUM 8.7 mg/dL (8.4-10.2); CREATININE, SERUM 1.4 mg/dL (0.72-1.25); POTASSIUM 4.5 mmol/L (3.5-5.1)
[2022-04-19] MEDS: FUROSEMIDE 40 MG TAB PO SCH ×2 (06:37→18:00)
[2022-04-19] MEDS: PANTOPRAZOLE SOD 40 MG TABEC PO SCH (07:30)
[2022-04-19] MEDS: INSULIN LISPRO 100 UNIT/1 ML 3ML VIAL SQ SCH ×4 (08:30→21:00)
[2022-04-19] MEDS ORDERED: APIXAB 2.5 MG TABLET PO SCH (09:00)
[2022-04-19] MEDS ORDERED: METOPROLOL TARTRATE 25 MG TAB PO SCH (09:00)
[2022-04-19] MEDS ORDERED: OMEPRAZOLE 20 MG CAP PO SCH (09:00)
[2022-04-19] MEDS: METOPROLOL TARTRATE 25 MG TAB PO SCH ×2 (09:00→22:00)
[2022-04-19] MEDS ORDERED: APIXABAN 5 MG TABLET PO SCH ×2 (09:00)
[2022-04-19] MEDS ORDERED: CLONIDINE HCL 0.1 MG TAB PO SCH (09:00)
[2022-04-19] MEDS: CLONIDINE HCL 0.1 MG TAB PO SCH ×2 (09:00→22:00)
[2022-04-19] MEDS: ALLOPURINOL 100 MG TAB PO SCH (09:00)
[2022-04-19] MEDS ORDERED: HYDRALAZINE HCL 20 MG/ML VIAL IV PRN (09:30)
[2022-04-19] MEDS: APIXAB 2.5 MG TABLET PO SCH ×2 (09:45→22:01)
[2022-04-19] MEDS: Morphine 4mg INJECTION 4 MG/ML INJ IV PRN ×3 (10:50→22:03)
[2022-04-19] MEDS: ONDANSETRON HCL INJ 2MG/ML 2ML 2 MG/ML VIAL IV PRN ×2 (10:51→17:03)
[2022-04-19] MEDS: ATORVASTATIN 20 MG TAB PO SCH (22:01)
[2022-04-19] MEDS: GABAPENTIN 300 MG CAP PO SCH (22:01)
[2022-04-20] VITALS (8 sets, daily range): BP systolic 134–155; BP diastolic 71–88
[2022-04-20] MEDS: FUROSEMIDE 40 MG TAB PO SCH ×3 (06:00→17:12)
[2022-04-20] MEDS: PANTOPRAZOLE SOD 40 MG TABEC PO SCH ×2 (06:05→08:19)
[2022-04-20] MEDS: APIXAB 2.5 MG TABLET PO SCH ×2 (08:18→21:27)
[2022-04-20] MEDS: LOSARTAN POTASSIUM 100 MG TAB PO SCH (08:18)
[2022-04-20] MEDS: ALLOPURINOL 100 MG TAB PO SCH (08:18)
[2022-04-20] MEDS: CLONIDINE HCL 0.1 MG TAB PO SCH (08:19)
[2022-04-20] MEDS: TRIAMTERENE/HCTZ 37.5-25 MG TAB PO SCH (08:19)
[2022-04-20] MEDS: METOPROLOL TARTRATE 25 MG TAB PO SCH (08:20)
[2022-04-20] MEDS: Morphine 4mg INJECTION 4 MG/ML INJ IV PRN ×2 (08:21→21:24)
[2022-04-20] MEDS: INSULIN LISPRO 100 UNIT/1 ML 3ML VIAL SQ SCH ×4 (08:38→21:00)
[2022-04-20] MEDS ORDERED: ONDANSETRON HCL 4 MG ORAL DISINTEGRATING TAB PO PRN (13:15)
[2022-04-20] MEDS: ATORVASTATIN 20 MG TAB PO SCH (21:28)
[2022-04-20] MEDS: GABAPENTIN 300 MG CAP PO SCH (21:28)
[2022-04-20] MEDS: METOPROLOL TARTRATE 50 MG TAB PO SCH (21:29)
[2022-04-21 00:14] VITALS: BP 164/76
[2022-04-21] MEDS: HYDROCODONE/APAP 5MG-325MG TAB PO PRN ×2 (01:20→10:31)
[2022-04-21 05:57] VITALS: BP 144/79
[2022-04-21] MEDS: FUROSEMIDE 40 MG TAB PO SCH (06:09)
[2022-04-21 07:44] VITALS: BP 144/79
[2022-04-21 07:54] VITALS: BP 155/80
[2022-04-21] MEDS: ALLOPURINOL 100 MG TAB PO SCH (08:38)
[2022-04-21] MEDS: APIXAB 2.5 MG TABLET PO SCH (08:38)
[2022-04-21] MEDS: TRIAMTERENE/HCTZ 37.5-25 MG TAB PO SCH (08:38)
[2022-04-21] MEDS: PANTOPRAZOLE SOD 40 MG TABEC PO SCH (08:38)
[2022-04-21] MEDS: LOSARTAN POTASSIUM 100 MG TAB PO SCH (08:39)
[2022-04-21] MEDS: METOPROLOL TARTRATE 50 MG TAB PO SCH (08:39)
[2022-04-21] MEDS: INSULIN LISPRO 100 UNIT/1 ML 3ML VIAL SQ SCH ×2 (08:43→12:04)
[2022-04-21 11:11] VITALS: BP 163/81
[2022-04-21 15:48] VITALS: BP 150/83
[2022-04-21] MEDS ORDERED: TRIAMTERENE-HCTZ1 EA PO (15:48)
[2022-04-21] MEDS ORDERED: COZAAR100 MG PO (15:48)
[2022-04-21] MEDS ORDERED: METOPROLOL TART50 MG PO (15:48)
[2022-04-21] MEDS ORDERED: NAPROXEN250 MG PO (15:53)
[2022-04-21] MEDS ORDERED: IBUPROFEN400 MG PO (16:14)
== END 2022-04-21 16:38 | disposition home or self-care (01) | DRG 552 ==
LOC: ER 09:33 → ERHOLD 14:15 → MED/SURG 17:11 → OBSVTOIN 04-20 14:28
PROVIDERS: ADMIT Internal Medicine; ATTEND Internal Medicine
DX: S32.029A Unspecified fracture of second lumbar vertebra, initial encounter for closed fracture (principal); Q60.0 Renal agenesis, unilateral; Z68.41 Body mass index [BMI] 40.0-44.9, adult; S32.039A Unspecified fracture of third lumbar vertebra, initial encounter for closed fracture; S32.049A Unspecified fracture of fourth lumbar vertebra, initial encounter for closed fracture; I11.0 Hypertensive heart disease with heart failure; I50.9 Heart failure, unspecified; E78.5 Hyperlipidemia, unspecified; M48.062 Spinal stenosis, lumbar region with neurogenic claudication; E66.9 Obesity, unspecified; W01.0XXA Fall on same level from slipping, tripping and stumbling without subsequent striking against object, initial encounter; Y93.01 Activity, walking, marching and hiking; E11.9 Type 2 diabetes mellitus without complications; I48.0 Paroxysmal atrial fibrillation; I25.2 Old myocardial infarction; Y92.019 Unspecified place in single-family (private) house as the place of occurrence of the external cause; Z86.718 Personal history of other venous thrombosis and embolism; Z79.4 Long term (current) use of insulin; Z20.822 Contact with and (suspected) exposure to COVID-19
CPT/HCPCS: 0223U; 36415; 72131; 80048; 80053; 82948; 83880; 84484; 85025; 99284; G0378; J0360; J1885; J2270; J2405

== ENCOUNTER 2022-05-21 07:03 | Inpatient (IN) | payer MEDICARE ==
[~2022-05-21] VITALS: Ht 190.5 cm; Wt 158.8 kg
[~2022-05-21 07:03] MED LIST changes: +ALLOPURINOL100 MG PO; +ASPIRIN EC81 MG PO; +CLONIDINE HCL0.2 MG PO; +COZAAR100 MG PO; +IBUPROFEN400 MG PO; +NAPROXEN250 MG PO; +NEURONTIN300 MG PO; +NOVOLOG100 UNIT/1 SC; +TRIAMTERENE-HCTZ1 EA PO; +TRICOR145 MG PO; +[UNRECOGNIZED DRUG - OTHER] SQ
[2022-05-21] MEDS ORDERED: SODIUM CHLORIDE 0.9% 500ML 500 ML IV ONE (07:30)
[2022-05-21] MEDS ORDERED: insulin (07:47)
[2022-05-21] MEDS ORDERED: ELIQUIS2.5 MG (07:47)
[2022-05-21] MEDS ORDERED: HYDROCODON-ACE1 EAC9 (07:47)
[2022-05-21] MEDS ORDERED: FENOFIBRATE134 MG PO (07:47)
[2022-05-21] MEDS ORDERED: LACTULOSE10 GM/151 (07:47)
[2022-05-21] MEDS ORDERED: ASPIRIN CHEW81 MG PO (07:57)
[2022-05-21] MEDS ORDERED: LASIX40 MG PO (07:57)
[2022-05-21] MEDS ORDERED: NEURONTIN300 MG PO (07:57)
[2022-05-21] MEDS ORDERED: ALLOPURINOL100 MG PO (07:57)
[2022-05-21] MEDS ORDERED: METOPROLOL TART25 MG PO (07:57)
[2022-05-21] MEDS ORDERED: LIPITOR20 MG PO (07:57)
[2022-05-21 07:58] LABS: BASOPHILS % 0.2 % (0.0-1.0); EOSINOPHILS # (AUTO) 0.1 (0.0-0.4); EOSINOPHILS % 2.7 % (0.0-6.0); HEMATOCRIT 47.1 % (38.2-49.6); HEMOGLOBIN 15.3 g/dL (14.0-18.0); LYMPHOCYTES # (AUTO) 2.4 (1.0-3.2); LYMPHOCYTES % 45.5 % (18.0-39.1); MEAN CORPUSCULAR HEMOGLOBIN 28.1 pg (28-32); MEAN CORPUSCULAR HGB CONC 32.5 g/dL (31-35); MEAN CORPUSCULAR VOLUME 86.6 fL (81-99); MONOCYTES # (AUTO) 0.4 (0.2-0.8); MONOCYTES % 7.5 % (4.4-11.3); NEUTROPHILS # (AUTO) 2.3 (2.1-6.9); NEUTROPHILS % 43.7 % (38.7-80.0); PLATELET COUNT 207 x10e3/uL (140-360); RED BLOOD COUNT 5.44 x10e6/uL (4.3-5.7); RED CELL DISTRIBUTION WIDTH 13.7 % (11.7-14.4)
[2022-05-21 08:00] VITALS: BP 163/91
[2022-05-21 08:01] LABS: PROTHROMBIN TIME 14.1 seconds (11.9-14.5)
[2022-05-21] MEDS ORDERED: INSULIN LI100 UNIT/1 SQ (08:01)
[2022-05-21] MEDS ORDERED: LANTUS 3ML100 UNITS/ SQ (08:01)
[2022-05-21 08:02] LABS: PARTIAL THROMBOPLASTIN TIME 29.1 seconds (23.8-35.5)
[2022-05-21 08:19] LABS: ALANINE AMINOTRANSFERASE 27 IU/L (0-55); ALBUMIN 3.4 g/dL (3.5-5.0); ALBUMIN/GLOBULIN RATIO 0.9 (0.8-2.0); ALKALINE PHOSPHATASE 75 IU/L (40-150); ANION GAP 16.7 mmol/L (8-16); BLOOD UREA NITROGEN 29 mg/dL (7-26); BUN/CREATININE RATIO 16 (6-25); CALCIUM 9.3 mg/dL (8.4-10.2); CARBON DIOXIDE 23 mmol/L (22-29); CHLORIDE 105 mmol/L (98-107); CREATINE KINASE 98 IU/L (30-200); CREATININE, SERUM 1.79 mg/dL (0.72-1.25); GLUCOSE 289 mg/dL (74-118); MAGNESIUM 1.9 MG/DL (1.3-2.1); POTASSIUM 3.7 mmol/L (3.5-5.1); SODIUM 141 mmol/L (136-145)
[2022-05-21] MEDS ORDERED: FAMOTIDINE 20 MG/2 ML VIAL IV SCH (08:45)
[2022-05-21] MEDS ORDERED: DEXTROSE 50% SYRINGE 50 ML IV PRN ×2 (08:45→20:00)
[2022-05-21] MEDS: INSULIN LISPRO 100 UNIT/1 ML 3ML VIAL SQ SCH ×3 (11:30→21:51)
[2022-05-21 12:30] VITALS: BP 166/86
[2022-05-21 12:50] VITALS: BP 166/86
[2022-05-21 14:58] LABS: CREATINE KINASE MB 4.4 ng/mL (0-5.0)
[2022-05-21 16:34] VITALS: BP 175/85
[2022-05-21 20:00] VITALS: BP 163/91
[2022-05-21] MEDS ORDERED: NON-FORMULARY MEDICATION ([Eliquis] 2.5 MG) PO SCH (20:00)
[2022-05-21 20:47] VITALS: BP 163/91
[2022-05-21 20:59] LABS: CREATINE KINASE MB 3.3 ng/mL (0-5.0)
[2022-05-21] MEDS ORDERED: INSULIN LISPRO 100 UNIT/1 ML 3ML VIAL SQ SCH (21:00)
[2022-05-21] MEDS: FAMOTIDINE 20 MG/2 ML VIAL IV SCH (21:46)
[2022-05-21] MEDS: APIXAB 2.5 MG TABLET PO SCH (22:24)
[2022-05-21] MEDS: ATORVASTATIN 40 MG TAB PO SCH (22:24)
[2022-05-21] MEDS: GABAPENTIN 300 MG CAP PO SCH (22:24)
[2022-05-21] MEDS: ONDANSETRON HCL INJ 2MG/ML 2ML 2 MG/ML VIAL IV PRN (22:30)
[2022-05-22] VITALS (9 sets, daily range): BP systolic 148–180; BP diastolic 80–110
[2022-05-22] MEDS: ONDANSETRON HCL INJ 2MG/ML 2ML 2 MG/ML VIAL IV PRN (05:20)
[2022-05-22] MEDS: PANTOPRAZOLE SOD 40 MG TABEC PO SCH (05:20)
[2022-05-22] MEDS: HYDRALAZINE HCL 20 MG/ML VIAL IV PRN ×2 (05:24→12:56)
[2022-05-22 05:56] LABS: BASOPHILS % 0.4 % (0.0-1.0); EOSINOPHILS # (AUTO) 0.1 (0.0-0.4); EOSINOPHILS % 2.4 % (0.0-6.0); HEMATOCRIT 43.9 % (38.2-49.6); HEMOGLOBIN 14.6 g/dL (14.0-18.0); LYMPHOCYTES # (AUTO) 1.8 (1.0-3.2); LYMPHOCYTES % 32.1 % (18.0-39.1); MEAN CORPUSCULAR HEMOGLOBIN 28.3 pg (28-32); MEAN CORPUSCULAR HGB CONC 33.3 g/dL (31-35); MEAN CORPUSCULAR VOLUME 85.2 fL (81-99); MONOCYTES # (AUTO) 0.4 (0.2-0.8); NEUTROPHILS # (AUTO) 3.1 (2.1-6.9); NEUTROPHILS % 56.9 % (38.7-80.0); PLATELET COUNT 172 x10e3/uL (140-360); RED BLOOD COUNT 5.15 x10e6/uL (4.3-5.7); RED CELL DISTRIBUTION WIDTH 13.5 % (11.7-14.4)
[2022-05-22 06:20] LABS: ALBUMIN 3.2 g/dL (3.5-5.0); ALBUMIN/GLOBULIN RATIO 0.9 (0.8-2.0); ANION GAP 17.7 mmol/L (8-16); CREATININE, SERUM 1.29 mg/dL (0.72-1.25); POTASSIUM 3.7 mmol/L (3.5-5.1)
[2022-05-22 06:42] LABS: CREATINE KINASE MB 2.5 ng/mL (0-5.0)
[2022-05-22] MEDS: NON-FORMULARY MEDICATION (Fenofibrate,Micronized (Fenofibrate) 160 MG) PO SCH (09:00)
[2022-05-22] MEDS: FAMOTIDINE 20 MG/2 ML VIAL IV SCH ×2 (10:46→21:00)
[2022-05-22] MEDS: APIXAB 2.5 MG TABLET PO SCH ×2 (10:47→21:00)
[2022-05-22] MEDS: ALLOPURINOL 100 MG TAB PO SCH (10:47)
[2022-05-22] MEDS: ASPIRIN 81 MG CHEW TAB PO SCH (10:47)
[2022-05-22] MEDS: METOPROLOL TARTRATE 25 MG TAB PO SCH ×2 (10:48→17:14)
[2022-05-22] MEDS: INSULIN LISPRO 100 UNIT/1 ML 3ML VIAL SQ SCH ×4 (11:10→21:00)
[2022-05-22] MEDS ORDERED: LACTULOSE SYRUP 20 GM/30 ML UDC PO PRN (14:15)
[2022-05-22] MEDS ORDERED: LACTULOSE SYRUP 20 GM/30 ML UDC PO ONE ×2 (14:45→15:45)
[2022-05-22 16:11] LABS: CLARITY,URINE SL CLOUDY (CLEAR); COLOR,URINE AMBER (YELLOW); KETONES,URINE NEGATIVE (NEGATIVE); LEUKOCYTE ESTERASE ,URINE NEGATIVE (NEGATIVE); NITRITE,URINE NEGATIVE (NEGATIVE); PROTEIN,URINE DIPSTICK >=300 (NEGATIVE); URINE UROBILINOGEN 1 mg/dL (0.2 - 1)
[2022-05-22 16:20] LABS: BACTERIA,URINE FEW /HPF
[2022-05-22] MEDS ORDERED: HYDRALAZINE HCL 25 MG TAB PO SCH (17:00)
[2022-05-22] MEDS: GABAPENTIN 300 MG CAP PO SCH (21:00)
[2022-05-22] MEDS: ATORVASTATIN 40 MG TAB PO SCH (21:00)
[2022-05-23] VITALS (7 sets, daily range): BP systolic 127–168; BP diastolic 76–96
[2022-05-23] MEDS: PANTOPRAZOLE SOD 40 MG TABEC PO SCH (05:15)
[2022-05-23] MEDS: NON-FORMULARY MEDICATION (Fenofibrate,Micronized (Fenofibrate) 160 MG) PO SCH (09:00)
[2022-05-23] MEDS ORDERED: AMLODIPINE BESYLATE 5 MG TAB PO SCH (09:00)
[2022-05-23] MEDS: ASPIRIN 81 MG CHEW TAB PO SCH (09:14)
[2022-05-23] MEDS: FAMOTIDINE 20 MG/2 ML VIAL IV SCH ×2 (09:14→21:14)
[2022-05-23] MEDS: APIXAB 2.5 MG TABLET PO SCH ×2 (09:14→21:14)
[2022-05-23] MEDS: METOPROLOL TARTRATE 25 MG TAB PO SCH ×2 (09:15→16:58)
[2022-05-23] MEDS: ALLOPURINOL 100 MG TAB PO SCH (09:15)
[2022-05-23] MEDS: AMLODIPINE BESYLATE 10 MG TAB PO SCH (09:16)
[2022-05-23] MEDS: INSULIN LISPRO 100 UNIT/1 ML 3ML VIAL SQ SCH ×4 (09:17→21:22)
[2022-05-23] MEDS: TRIAMTERENE/HCTZ 37.5-25 MG TAB PO SCH (11:15)
[2022-05-23] MEDS: GABAPENTIN 300 MG CAP PO SCH (21:14)
[2022-05-23] MEDS: ATORVASTATIN 40 MG TAB PO SCH (21:22)
[2022-05-23] MEDS ORDERED: APIXAB 2.5 MG TABLET PO SCH (22:00)
[2022-05-24] VITALS (7 sets, daily range): BP systolic 112–153; BP diastolic 70–93
[2022-05-24] MEDS: PANTOPRAZOLE SOD 40 MG TABEC PO SCH (05:23)
[2022-05-24 06:14] LABS: BASOPHILS % 0.6 % (0.0-1.0); EOSINOPHILS # (AUTO) 0.1 (0.0-0.4); EOSINOPHILS % 2.6 % (0.0-6.0); HEMATOCRIT 44.8 % (38.2-49.6); HEMOGLOBIN 14.6 g/dL (14.0-18.0); LYMPHOCYTES % 37.2 % (18.0-39.1); MEAN CORPUSCULAR HEMOGLOBIN 28.6 pg (28-32); MEAN CORPUSCULAR HGB CONC 32.6 g/dL (31-35); MEAN CORPUSCULAR VOLUME 87.8 fL (81-99); MONOCYTES # (AUTO) 0.5 (0.2-0.8); MONOCYTES % 8.4 % (4.4-11.3); NEUTROPHILS # (AUTO) 2.7 (2.1-6.9); NEUTROPHILS % 50.3 % (38.7-80.0); PLATELET COUNT 124 x10e3/uL (140-360); RED CELL DISTRIBUTION WIDTH 13.5 % (11.7-14.4)
[2022-05-24 06:44] LABS: ALBUMIN 3.1 g/dL (3.5-5.0); ALBUMIN/GLOBULIN RATIO 0.8 (0.8-2.0); ANION GAP 18.7 mmol/L (8-16); CALCIUM 9.1 mg/dL (8.4-10.2); CREATININE, SERUM 1.37 mg/dL (0.72-1.25); POTASSIUM 3.7 mmol/L (3.5-5.1)
[2022-05-24 07:08] LABS: FREE T4 (FREE THYROXINE) 0.93 ng/dL (0.8-1.8); THYROID STIMULATING HORMONE 2.217 uIU/mL (0.350-4.940)
[2022-05-24 07:25] LABS: ERYTHROCYTE SEDIMENTATION RATE 37 mm/hr (0-13)
[2022-05-24] MEDS: INSULIN LISPRO 100 UNIT/1 ML 3ML VIAL SQ SCH ×4 (08:33→20:44)
[2022-05-24] MEDS: FAMOTIDINE 20 MG/2 ML VIAL IV SCH (08:34)
[2022-05-24] MEDS: TRIAMTERENE/HCTZ 37.5-25 MG TAB PO SCH (08:35)
[2022-05-24] MEDS: METOPROLOL TARTRATE 25 MG TAB PO SCH ×2 (08:36→16:34)
[2022-05-24] MEDS: AMLODIPINE BESYLATE 10 MG TAB PO SCH (08:36)
[2022-05-24] MEDS: ASPIRIN 81 MG CHEW TAB PO SCH (08:36)
[2022-05-24] MEDS: ALLOPURINOL 100 MG TAB PO SCH (08:37)
[2022-05-24] MEDS: APIXAB 2.5 MG TABLET PO SCH ×2 (08:37→20:35)
[2022-05-24] MEDS: NON-FORMULARY MEDICATION (Fenofibrate,Micronized (Fenofibrate) 160 MG) PO SCH (09:00)
[2022-05-24] MEDS: SODIUM CHLORIDE 0.9% 1000ML 1,000 ML IV SCH ×2 (09:27→20:42)
[2022-05-24] MEDS: HYDROCODONE/APAP 10MG-325MG TAB PO PRN (09:28)
[2022-05-24] MEDS ORDERED: ONDANSETRON HCL 4 MG ORAL DISINTEGRATING TAB PO PRN (11:30)
[2022-05-24] MEDS: GABAPENTIN 300 MG CAP PO SCH (20:35)
[2022-05-24] MEDS: ATORVASTATIN 40 MG TAB PO SCH (20:35)
[2022-05-24] MEDS: FAMOTIDINE 20 MG TAB PO SCH (20:35)
[2022-05-25] VITALS (10 sets, daily range): BP systolic 103–151; BP diastolic 57–98
[2022-05-25] MEDS: PANTOPRAZOLE SOD 40 MG TABEC PO SCH (05:25)
[2022-05-25] MEDS: SODIUM CHLORIDE 0.9% 1000ML 1,000 ML IV SCH ×2 (05:39→18:01)
[2022-05-25] MEDS: HYDROCODONE/APAP 10MG-325MG TAB PO PRN ×2 (06:17→13:00)
[2022-05-25] MEDS: INSULIN LISPRO 100 UNIT/1 ML 3ML VIAL SQ SCH ×4 (07:30→21:06)
[2022-05-25] MEDS: NON-FORMULARY MEDICATION (Fenofibrate,Micronized (Fenofibrate) 160 MG) PO SCH (09:00)
[2022-05-25] MEDS: ASPIRIN 81 MG CHEW TAB PO SCH (10:34)
[2022-05-25] MEDS: APIXAB 2.5 MG TABLET PO SCH ×2 (10:39→20:21)
[2022-05-25] MEDS: METOPROLOL TARTRATE 25 MG TAB PO SCH ×2 (10:39→18:02)
[2022-05-25] MEDS: FAMOTIDINE 20 MG TAB PO SCH ×2 (10:40→20:21)
[2022-05-25] MEDS: AMLODIPINE BESYLATE 10 MG TAB PO SCH (10:40)
[2022-05-25] MEDS: ALLOPURINOL 100 MG TAB PO SCH (10:40)
[2022-05-25] MEDS: TRIAMTERENE/HCTZ 37.5-25 MG TAB PO SCH (10:42)
[2022-05-25] MEDS: GABAPENTIN 300 MG CAP PO SCH (20:20)
[2022-05-25] MEDS: ATORVASTATIN 40 MG TAB PO SCH (20:21)
[2022-05-26] VITALS (8 sets, daily range): BP systolic 120–132; BP diastolic 63–88
[2022-05-26 07:12] LABS: BASOPHILS % 0.4 % (0.0-1.0); EOSINOPHILS # (AUTO) 0.1 (0.0-0.4); EOSINOPHILS % 2.7 % (0.0-6.0); HEMATOCRIT 46.9 % (38.2-49.6); LYMPHOCYTES # (AUTO) 1.8 (1.0-3.2); LYMPHOCYTES % 34.5 % (18.0-39.1); MEAN CORPUSCULAR HEMOGLOBIN 28.1 pg (28-32); MEAN CORPUSCULAR VOLUME 87.8 fL (81-99); MONOCYTES # (AUTO) 0.4 (0.2-0.8); MONOCYTES % 8.3 % (4.4-11.3); NEUTROPHILS # (AUTO) 2.9 (2.1-6.9); NEUTROPHILS % 53.9 % (38.7-80.0); PLATELET COUNT 187 x10e3/uL (140-360); RED BLOOD COUNT 5.34 x10e6/uL (4.3-5.7); RED CELL DISTRIBUTION WIDTH 12.9 % (11.7-14.4)
[2022-05-26] MEDS: INSULIN LISPRO 100 UNIT/1 ML 3ML VIAL SQ SCH ×4 (07:30→20:59)
[2022-05-26 07:44] LABS: ANION GAP 15.9 mmol/L (8-16); CREATININE, SERUM 1.14 mg/dL (0.72-1.25); POTASSIUM 3.9 mmol/L (3.5-5.1)
[2022-05-26 07:45] LABS: CALCIUM 9.1 mg/dL (8.4-10.2)
[2022-05-26] MEDS: APIXAB 2.5 MG TABLET PO SCH ×2 (08:58→20:50)
[2022-05-26] MEDS: AMLODIPINE BESYLATE 10 MG TAB PO SCH (08:59)
[2022-05-26] MEDS: ASPIRIN 81 MG CHEW TAB PO SCH (08:59)
[2022-05-26] MEDS: TRIAMTERENE/HCTZ 37.5-25 MG TAB PO SCH (08:59)
[2022-05-26] MEDS: NON-FORMULARY MEDICATION (Fenofibrate,Micronized (Fenofibrate) 160 MG) PO SCH (09:00)
[2022-05-26] MEDS: ALLOPURINOL 100 MG TAB PO SCH (09:01)
[2022-05-26] MEDS: METOPROLOL TARTRATE 25 MG TAB PO SCH ×2 (09:01→17:18)
[2022-05-26] MEDS: PANTOPRAZOLE SOD 40 MG TABEC PO SCH (09:01)
[2022-05-26] MEDS: FAMOTIDINE 20 MG TAB PO SCH ×2 (09:01→20:50)
[2022-05-26] MEDS: HYDROCODONE/APAP 10MG-325MG TAB PO PRN ×2 (15:16→23:49)
[2022-05-26] MEDS: ATORVASTATIN 40 MG TAB PO SCH (20:50)
[2022-05-26] MEDS: SODIUM CHLORIDE 0.9% 1000ML 1,000 ML IV SCH ×3 (20:50→21:45)
[2022-05-26] MEDS: GABAPENTIN 300 MG CAP PO SCH (20:50)
[2022-05-27 00:42] VITALS: BP 138/62
[2022-05-27 05:01] VITALS: BP 149/63
[2022-05-27] MEDS: PANTOPRAZOLE SOD 40 MG TABEC PO SCH (06:23)
[2022-05-27] MEDS: INSULIN LISPRO 100 UNIT/1 ML 3ML VIAL SQ SCH (07:30)
[2022-05-27] MEDS ORDERED: TRIAMTERENE-HCTZ1 EA PO (07:50)
[2022-05-27] MEDS ORDERED: NORVASC10 MG PO (07:50)
[2022-05-27 08:43] VITALS: BP 132/79
[2022-05-27] MEDS: NON-FORMULARY MEDICATION (Fenofibrate,Micronized (Fenofibrate) 160 MG) PO SCH (09:00)
[2022-05-27 09:18] VITALS: BP 132/79
[2022-05-27] MEDS: ALLOPURINOL 100 MG TAB PO SCH (10:27)
[2022-05-27] MEDS: ASPIRIN 81 MG CHEW TAB PO SCH (10:27)
[2022-05-27] MEDS: FAMOTIDINE 20 MG TAB PO SCH (10:28)
[2022-05-27] MEDS: AMLODIPINE BESYLATE 10 MG TAB PO SCH (10:28)
[2022-05-27] MEDS: APIXAB 2.5 MG TABLET PO SCH (10:29)
[2022-05-27] MEDS: METOPROLOL TARTRATE 25 MG TAB PO SCH (10:29)
[2022-05-27] MEDS: TRIAMTERENE/HCTZ 37.5-25 MG TAB PO SCH (10:30)
[2022-05-27] MEDS: HYDROCODONE/APAP 10MG-325MG TAB PO PRN (11:00)
[2022-05-27 12:38] VITALS: BP 131/74
== END 2022-05-27 13:00 | disposition home or self-care (01) | DRG 312 ==
LOC: ER 07:06 → ERHOLD 08:35 → MED/SURG3 11:38 → OBSVTOIN 05-23 16:42
PROVIDERS: ADMIT Internal Medicine; ATTEND Internal Medicine
DX: R55 Syncope and collapse (principal); N17.9 Acute kidney failure, unspecified; Z68.41 Body mass index [BMI] 40.0-44.9, adult; R42 Dizziness and giddiness; I11.0 Hypertensive heart disease with heart failure; I50.9 Heart failure, unspecified; E11.9 Type 2 diabetes mellitus without complications; I48.0 Paroxysmal atrial fibrillation; K21.9 Gastro-esophageal reflux disease without esophagitis; E78.5 Hyperlipidemia, unspecified; I25.2 Old myocardial infarction; E66.9 Obesity, unspecified; W18.39XA Other fall on same level, initial encounter; Y93.89 Activity, other specified; Z86.73 Personal history of transient ischemic attack (TIA), and cerebral infarction without residual deficits; Z86.718 Personal history of other venous thrombosis and embolism; Z79.82 Long term (current) use of aspirin; Z79.4 Long term (current) use of insulin; Z20.822 Contact with and (suspected) exposure to COVID-19; Y92.019 Unspecified place in single-family (private) house as the place of occurrence of the external cause; G89.4 Chronic pain syndrome
CPT/HCPCS: 0223U; 36415; 70450; 70551; 71045; 72125; 72131; 80048; 80053; 81001; 82533; 82550; 82553; 82948; 83735; 83880; 84439; 84443; 84484; 85025; 85610; 85651; 85730; 86039; 87086; 93005; 96361; 99284; G0378; J0360; J2405; J7030; J7040

== ENCOUNTER 2023-01-28 10:12 | Emergency (ER) | payer MEDICARE ==
[~2023-01-28] VITALS: Ht 190.5 cm; Wt 158.8 kg
[~2023-01-28 10:12] MED LIST changes: +ASPIRIN CHEW81 MG PO; +ELIQUIS2.5 MG; +FENOFIBRATE134 MG PO; +HYDROCODON-ACE1 EAC9; +INSULIN LI100 UNIT/1 SQ; +LACTULOSE10 GM/151; +LASIX40 MG PO; +LIPITOR20 MG PO; +NORVASC10 MG PO; +insulin
[2023-01-28] MEDS ORDERED: LACTATED RINGER'S 1,000 ML INJ ONE (10:30)
[2023-01-28 10:52] LABS: BASOPHILS % 0.7 % (0.0-1.0); EOSINOPHILS # (AUTO) 0.2 (0.0-0.4); EOSINOPHILS % 4.1 % (0.0-6.0); HEMATOCRIT 48.8 % (38.2-49.6); HEMOGLOBIN 16.1 g/dL (14.0-18.0); LYMPHOCYTES # (AUTO) 1.8 (1.0-3.2); LYMPHOCYTES % 31.7 % (18.0-39.1); MEAN CORPUSCULAR HEMOGLOBIN 29.1 pg (28-32); MEAN CORPUSCULAR VOLUME 88.2 fL (81-99); MONOCYTES # (AUTO) 0.5 (0.2-0.8); MONOCYTES % 8.3 % (4.4-11.3); NEUTROPHILS # (AUTO) 3.1 (2.1-6.9); PLATELET COUNT 170 x10e3/uL (140-360); RED BLOOD COUNT 5.53 x10e6/uL (4.3-5.7); RED CELL DISTRIBUTION WIDTH 15.6 % (11.7-14.4)
[2023-01-28 11:12] VITALS: O2SAT 100
[2023-01-28 11:18] LABS: ALBUMIN 3.7 g/dL (3.5-5.0); ALBUMIN/GLOBULIN RATIO 0.9 (0.8-2.0); ANION GAP 23.3 mmol/L (8-16); CALCIUM 9.6 mg/dL (8.4-10.2); CREATININE, SERUM 3.18 mg/dL (0.72-1.25); POTASSIUM 4.3 mmol/L (3.5-5.1)
== END 2023-01-28 12:17 | disposition home or self-care (01) ==
LOC: ER 10:18
DX: R13.10 Dysphagia, unspecified (principal); N28.9 Disorder of kidney and ureter, unspecified; K21.9 Gastro-esophageal reflux disease without esophagitis; E86.0 Dehydration; R53.1 Weakness; I11.0 Hypertensive heart disease with heart failure; I50.9 Heart failure, unspecified; I48.91 Unspecified atrial fibrillation; E78.5 Hyperlipidemia, unspecified; E11.9 Type 2 diabetes mellitus without complications; Z86.718 Personal history of other venous thrombosis and embolism; Z79.4 Long term (current) use of insulin; Z86.711 Personal history of pulmonary embolism; Z79.01 Long term (current) use of anticoagulants; Z79.899 Other long term (current) drug therapy; Z87.891 Personal history of nicotine dependence
CPT/HCPCS: 36415; 80053; 85025; 99283; J7121